=== PATIENT | male | born 1980 | race Caucasian/White ===

== ENCOUNTER 2022-04-04 11:20 | Emergency (ER) | payer SELFPAY ==
[2022-04-04 11:21] VITALS: BP 143/102; PULSE 75; RESP 18; TEMP 36.6; O2SAT 99; BMI 25.0
--- NOTE | 2022-04-04 11:27 | NURSING ---
NO OLD EKGS
--- NOTE | 2022-04-04 12:29 | RAD_ITS ---
STUDY: X-RAY - RIGHT HAND REASON FOR EXAM: Male, 41 years old. Injury/Pain TECHNIQUE: 3 view(s) of the hand. COMPARISON: None. FINDINGS: Normal radiocarpal articulation. Normal distal radioulnar joint. Normal visualized carpal bones. Normal carpal articulations Normal carpometacarpal articulation of the thumb. Normal second through fifth carpometacarpal joints. Normal metacarpi. Normal metacarpophalangeal joint of the thumb. Normal interphalangeal joint of the thumb. Normal proximal and distal phalanges of the thumb. Normal metacarpophalangeal joints of the second through fifth fingers. Normal proximal and distal interphalangeal joints of the second through fifth fingers. Normal phalanges of the second through fifth fingers. The soft tissue structures are unremarkable. RAD/Hand Min 3 Views IMPRESSION: Normal x-ray examination of the hand. Electronically Signed: Naeem Weston MD at 13:50 EST ,
[2022-04-04 12:57] LABS: Absolute Lymphocyte Count 1.96 X10^3/uL (0.83-4.51); Basophil# 0.11 X10^3/uL; Basophil% 1.1 % (0-1); Eosinophils% 6.7 % (0-5); Hematocrit 49.7 % (40-54); Hemoglobin 16.4 g/dL (13.0-16.5); Lymphocyte # 1.96 X10^3/ul (0.83-4.51); Lymphocyte % 18.9 % (19-41); Mean Corpuscular Hgb 28.1 pg (27.0-32.0); Mean Corpuscular Volume 85.1 fL (80-94); Mean Platelet Vol. 12.2 fl (6.2-12.0); Monocyte# 0.63 X10^3/uL; Monocyte% 6.1 % (0-10); NRBC Flagged by Analyzer 0 % (0-5); Neutrophil # 6.95 X10^3/uL (2.7-7.7); Neutrophil % 66.9 % (47-70); Platelet Count 234 K/mm3 (150-450); RBC Distribution Width CV 17.5 % (11.6-14.6); Red Blood Count 5.84 M/mm3 (4.6-6.2); White Blood Count 10.4 K/mm3 (4.4-11.0)
[2022-04-04 13:13] LABS: Anion Gap 3 (5-15); BUN 9 mg/dL (7-18); BUN/Creat Ratio 9.7 RATIO (10-20); Chloride 110 mmol/L (98-107); Creatinine, Serum 0.93 mg/dL (0.70-1.30); EST Glomerular Filtration Rate 94 mL/min (>60); Est Glom Filt Rate - Afr Amer 114 mL/min (>60); Estimated Creatinine Clearance 115.75 ml/min; Glucose 124 mg/dL (74-106); Magnesium 2.2 mg/dL (1.6-2.6); Potassium 4.2 mmol/L (3.5-5.1); Sodium Level 139 mmol/L (136-145)
[2022-04-04] MEDS: Ketorolac 15 MG/ML Vial IV (13:14)
[2022-04-04 13:29] VITALS: RESP 16
--- NOTE | 2022-04-04 13:30 | RAD_ITS ---
STUDY: X-RAY - CERVICAL SPINE REASON FOR EXAM: Male, 41 years old. Injury/Pain TECHNIQUE: 3 view(s) of the cervical spine were obtained. COMPARISON: None FINDINGS: Normal anterior atlantoaxial articulation. Normal odontoid process. There is straightening of the normal cervical lordosis. Anterior spondylosis and moderate degree of disc space narrowing at the C5-C6 and C6-C7 levels. Normal visualized intervertebral neuroforamina. The soft tissue structures are unremarkable. RAD/Cerv Spine 2 or 3 Views IMPRESSION: Loss of the normal cervical lordosis. Moderate degree of disc space narrowing and spondylosis at the C5-C6 and C6-C7 levels. Electronically Signed: Naeem Weston MD at 13:51 EST ,
--- NOTE | 2022-04-04 14:38 | EX.ED.DYSGE1 ---
HPI History of Present Illness Chief Complaint: Numb/Ting Informant: patient Narrative Narrative: 41-year-old male denies any significant past medical history presenting with paresthesias and weakness of his hands, right worse than left. He is right-hand dominant. States he has chronic right shoulder pain that has been worsening over the past few months. He states last night he just felt like his fingers were sausages and could not move them too well. States he also has pain in his shoulder, elbow and hand separately. 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 Patient states his thumb and index finger off the worst of his other fingers but all of his fingers feel numb. His mother does have a history of lupus and MS. Patient has been told he has herniated disc in his neck before. He states he has not dropped anything but has not really tried to pick anything up. He did not take any of her symptoms prior to arrival. He does not follow with anyone for this. No other complaints at this time. Denies any injury or trauma. Patient denies any history of cancer, IV drug use or any bleeding disorders. Is not any blood thinners. Denies any new night sweats PFSH PFSH Home Medications prednisone 20 mg tablet 40 mg PO DAILY #8 tabs 04/04/22 [Rx Last Taken Unknown] Allergy/AdvReac Type Severity Reaction Status Date / Time No Known Allergies Allergy Verified 04/04/22 11:22 Social History Smoking Status: Never smoker ROS ROS ED Constitutional Constitutional ED: Denies chills or fever(s) Eyes Eyes: Denies change in vision Cardiovascular Cardiovascular: Denies chest pain or palpitations Respiratory/Chest Respiratory/Chest: Denies cough Gastrointestinal Gastrointestinal: Denies abdominal pain or vomiting Musculoskeletal Musculoskeletal: Reports arthralgias and neck pain Integumentary Denies rash Neurologic Neurologic: Reports paresthesias; Denies headache(s) EXAM Physical Exam Const Vital Signs: 04/04/22 11:21 04/04/22 13:29 Temperature 97.8 F Temperature Source Temporal Pulse Rate 75 Respiratory Rate 18 16 Blood Pressure 143/102 H Blood Pressure Mean 115 Pulse Ox 99 Oxygen Delivery Method Room Air Positive well nourished and well developed General Appearance ED: well developed and NAD HEENT Reports moist mucous membranes Eyes PERRL Neck supple and no JVD Neck Narrative: No midline tenderness. Mild bilateral paraspinal tenderness to palpation Chest Wall inspection of chest normal Resp normal respiratory effort and clear to auscultation bilaterally Cardio regular rate, regular rhythm and no murmurs GI non-distended Extremity Extremity Narrative: Mild edema diffusely of the right hand. Patient has tenderness over the medial aspect of the right elbow with direct palpation but does not cause pain to radiate down the hand. Patient has preserved range of motion of the hand including thumbs up, crossing the fingers, AB duction, adduction and making a fist however it is slower and causes discomfort. He reports subjective paresthesias of the hand with the thumb and the index finger are worse than the other 3 fingers. Normal exam of the left hand. Pain is worsened by Sara's test. Neuro oriented x3 and CN's II-XII intact bilaterally Neuro Narrative: Subjective paresthesias of the right hand diffusely but most pronounced in the distribution of the radial nerve of the right hand Sensorium / Orientation: alert Motor Exam: strength 5/5 throughout; Negative for general weakness Psych mental status grossly normal Skin no rashes or lesions noted and no wounds MDM MDM MDM Narrative Medical decision making narrative: Patient evaluated for bilateral hand paresthesias and pain. He has what seems to be more of a peripheral nerve entrapment and possible radiculopathy. I suspect he has de Quervain's tenosynovitis given the significant pain and paresthesias with movement of the radial aspect of the hand. CBC, BMP and magnesium ordered to check his electrolytes. No significant abnormalities. X-ray of the hand does not show any acute process. X-ray of the cervical spine did show moderate degree of disc base narrowing and spondylosis of C5-C6 and C6-C7. I do not think he requires emergent MRI. He does not have any risk factors for discitis or epidural abscess/hematoma. Patient has improvement of symptoms with IV Toradol in the ER. I do not think this is a central process I do not think he requires any head imaging. Patient is given referral for Ortho for outpatient follow-up as well as a primary care doctor. Is started on a short course of prednisone. Is given a thumb spica splint. Is counseled return precautions. Discharged home in stable condition. States he will talk to his work about light duty or decreasing the repetitive motion that likely is worsening his hand symptoms. Lab Data Attestation: I reviewed the patient's lab results. Labs: Laboratory Results - last 24 hr 04/04/22 04/04/22 12:45 12:45 WBC 10.4 RBC 5.84 Hgb 16.4 Hct 49.7 MCV 85.1 MCH 28.1 MCHC 33.0 RDW Std Deviation 50.0 H RDW Coeff of Johnson 17.5 H Plt Count 234 MPV 12.2 H Immature Gran % (Auto) 0.300 Neut % (Auto) 66.9 Lymph % (Auto) 18.9 L [place] % (Auto) 6.1 Eos % (Auto) 6.7 H Baso % (Auto) 1.1 H Absolute Neuts (auto) 7.0 Absolute Lymphs (auto) 1.96 Nucleated RBC % 0 Sodium 139 Potassium 4.2 Chloride 110 H Carbon Dioxide 26.0 Anion Gap 3 L BUN 9 Creatinine 0.93 Estim Creat Clear Calc 115.75 Est GFR (MDRD) Af Amer 114 Est GFR (MDRD) Non-Af 94 BUN/Creatinine Ratio 9.7 L Glucose 124 H Calcium 10.0 Magnesium 2.2 Radiography Diagnostic Testing: Clinical Impression(s) from Imaging Studies Hand X-Ray 04/04/22 12:29 IMPRESSION: Normal x-ray examination of the hand. Electronically Signed: Naeem Weston MD at 13:50 EST , Cervical Spine X-Ray 04/04/22 13:30 IMPRESSION: Loss of the normal cervical lordosis. Moderate degree of disc space narrowing and spondylosis at the C5-C6 and C6-C7 levels. Electronically Signed: Naeem Weston MD at 13:51 EST , Discharge Plan Triage Chief Complaint: Numb/Ting ED Provider: Carmen Kincaid Dx/Rx/DC Orders Clinical Impression: Arm paresthesia, right, Paresthesias in left hand, Paresthesias in right hand, De Quervain's tenosynovitis, right Instructions: De Quervain Tenosynovitis, ED Neuropathy, Peripheral, ED Paraesthesias Prescriptions: New prednisone 20 mg tablet 40 mg PO DAILY Qty: 8 0RF Primary Care Provider: Care Physician,No Primary Referrals: Callum Garza MD [Med Staff - Climbing Guide] - As soon as possible Jackson Gooden DO [Med Staff - Active Staff] - As soon as possible Care Physician,No Primary [Primary Care Provider] - Activity Restrictions/Additional Instructions: Alternate ibuprofen and Tylenol. Wear the splint especially while at work. Follow-up with orthopedics as well as primary care. You been given a referral for both. Disposition Disposition: Home, Self Care Discharge Date/Time: 04/04/22 14:56
[2022-04-04] MEDS: predniSONE 20 MG Tablet 60 MG PO (14:53)
== END 2022-04-04 14:56 | disposition home or self-care (01) ==
PROVIDERS: Emergency Provider Emergency Medicine; Visit Provider Emergency Medicine
DX: R20.2 Paresthesia of skin (principal); M65.4 Radial styloid tenosynovitis [de Quervain]; M47.812 Spondylosis without myelopathy or radiculopathy, cervical region; G89.29 Other chronic pain
CPT/HCPCS: 72040; 73130; 80048; 83735; 85025; 96374; 99285; A4216

== ENCOUNTER 2022-09-18 13:42 | Emergency (ER) | payer SELFPAY ==
[2022-09-18 13:43] VITALS: BP 177/97; PULSE 66; RESP 22; TEMP 36.6; O2SAT 100; BMI 22.1
--- NOTE | 2022-09-18 14:12 | EDS_ITS ---
HPI History of Present Illness Chief Complaint: Nausea/Vomiting PFSH PFS Home Medications prednisone 20 mg tablet 40 mg (2 x 20 mg) PO DAILY #8 tabs 04/04/22 [Rx Last Taken Unknown] ondansetron 4 mg disintegrating tablet 4 mg PO Q8H PRN nausea and vomiting 3 days #9 tabs 09/18/22 [Rx Last Taken Unknown] Allergy/AdvReac Type Severity Reaction Status Date / Time No Known Allergies Allergy Verified 09/18/22 13:42 Social History Smoking Status: Current every day smoker tobacco type: cigarettes EXAM Physical Exam Const Vital Signs: 09/18/22 13:43 Temperature 97.8 F Temperature Source Temporal Pulse Rate 66 Respiratory Rate 22 H Blood Pressure 177/97 H Blood Pressure Mean 123 Pulse Ox 100 Oxygen Delivery Method Room Air [facility] MDM Narrative Medical decision making narrative: HISTORY OF PRESENT ILLNESS: 41-year-old male here with acute onset of nausea and vomiting. Denies any recent travel, new foods. Denies any fever. Denies any chest pain or abdominal pain. States that started proxy 1 hour prior to arrival with intractable nausea and vomiting. Also states he feels anxious. Denies any suicidal homicidal ideation denies any auditory visual hallucinations. REVIEW OF SYSTEMS: Pertinent positives: Nausea vomiting, anxiety Pertinent negatives: Chest pain, abdominal pain, syncope PHYSICAL EXAM: Nursing triage notes reviewed, Vital signs reviewed Constitutional: please see mdm HENT: MMM Eyes: Pupils equal round and reactive to light, Extraocular muscles intact Neck: No stridor, no JVD, full neck ROM Lungs: Clear to auscultation, No wheezing or rales. No increased work of breathing, no conversational dyspnea, no accessory muscle use, no nasal flaring. No respiratory distress noted Heart: Regular rate and rhythm, No murmurs, No rubs and No gallops, 2+ distal pulses (radial, femoral, posterior tibial) in all extremities Abdomen: Soft, there is no tenderness, rigidity, rebound or guarding, no obvious peritoneal signs, no palpable pulsatile abdominal masses, no auscultated abdominal bruit : No CVAT Extremities: No edema Neuro: No focal neurological deficits, cranial nerves II through XII intact, 5/5 strength in all extremities. Intact sensation to light touch in all extremities, 2+ reflexes bilateral patella tendons. Normal gait. No ataxia. Skin: No rash or lesions noted MEDICAL DECISION MAKING: Chief Complaint: Nausea vomiting External records reviewed: No recent Hernandez imaging the abdomen pelvis noted Factors affecting care: none ALL IMAGES (IF OBTAINED) HAVE BEEN PERSONALLY REVIEWED AND INTERPRETED BY MYSELF. MDM Narrative: Patient was hemodynamically stable, afebrile, nontoxic-appearing. Abdominal exam was benign. Low suspicion for acute surgical pathology abdomen and pelvis. I obtained labs rule out dehydration, electrolyte abnormalities, systemic infl ammation. I treated the patient with fluids, Zofran and Ativan Labs are unremarkable. Repeat abdominal exam is benign. The patient appeared comfortable actually initially sleeping on my reassessment. He is easily arousable. Attempted p.o. challenge the patient refused to attempt p.o. challenge. We will discharge with Zofran. With instructed return if he develops new nausea and vomiting. I see nothing that would suggest an acute abdomen at this time. Based on history physical exam, risk factors, I have a low for bowel obstruction, incarcerated hernia, acute pancreatitis, intra-abdominal abscess, perforated viscus, diverticulitis, cholecystitis, appendicitis, is very low. There is no evidence of peritonitis sepsis or toxicity at this time. I feel the patient can be managed as an outpatient with follow-up with her primary physician in the next 24 to 48 hours or soon as possible. Instructions have been given for the patient to return to the ED for worsening pain, anorexia, high fevers, intractable vomiting or bleeding. The patient and/or family, caregivers express understanding. The patient and/or family, caregivers agrees with the plan. Shared decision making: I will have a discussion with the patient and or visitors regarding risk/benefits of further testing or admission. They will be made aware of of the risk/benefits inherent in this decision they will be given the opportunity to voice understanding. Total critical care time today provided was at least 0 minutes. This excludes separately billable procedures. Critical care time (if documented) is secondary to the patient having high probability of clinically significant/life threatening deterioration in the patient's condition which required my urgent intervention. Lab Data Attestation: I reviewed the patient's lab results. Lab results narrative: CBC without leukocytosis, severe anemia, no thrombocytopenia. BMP without evidence of significant electrolyte abnormalities, no anion gap, no acute kidney injury. LFTs show no evidence of hepatobiliary pathology. Lipase is wnl indicating no pancreatic inflammation. Labs: Laboratory Results - last 24 hr 09/18/22 14:27 WBC 10.8 RBC 5.46 Hgb 16.1 Hct 48.3 MCV 88.5 MCH 29.5 MCHC 33.3 RDW Std Deviation 50.5 H RDW Coeff of Johnson 15.5 H Plt Count 236 MPV 11.4 Immature Gran % (Auto) 0.400 Neut % (Auto) 67.7 Lymph % (Auto) 20.3 [place] % (Auto) 8.1 Eos % (Auto) 2.7 Baso % (Auto) 0.8 Absolute Neuts (auto) 7.3 Absolute Lymphs (auto) 2.20 Nucleated RBC % 0 Sodium 137 Potassium 3.7 Chloride 106 Carbon Dioxide 22.0 Anion Gap 9 BUN 9 Creatinine 0.96 Estim Creat Clear Calc 104.01 Est GFR (MDRD) Af Amer 110 Est GFR (MDRD) Non-Af 91 BUN/Creatinine Ratio 9.4 L Glucose 92 Calcium 9.5 Total Bilirubin 0.90 AST 14 L ALT 29 Alkaline Phosphatase 87 Total Protein 7.7 Albumin 4.0 Globulin 3.7 Albumin/Globulin Ratio 1.1 Lipase 71 Discharge Plan Triage Chief Complaint: Nausea/Vomiting Other Complaint: Anxiety ED Provider: Patricio Miller Dx/Rx/DC Orders Clinical Impression: Anxiety, Nausea & vomiting Instructions: ED Vomiting (Adult) Prescriptions: New ondansetron 4 mg tablet,disintegrating 4 mg PO Q8H PRN (Reason: nausea and vomiting) 3 Days Qty: 9 0RF No Action prednisone 20 mg tablet 40 mg PO DAILY Qty: 8 0RF Stand Alone Forms: ED Work / School Excuse Primary Care Provider: Care Physician,No Primary Referrals: Care Physician,No Primary [Primary Care Provider] - Activity Restrictions/Additional Instructions: Thank you for trusting us with your care today! Please take Tylenol (2 pills, 650 mg), ibuprofen (2 pills, 400 mg) every 6 hours as needed for pain and fever control. Please take Zofran as needed for nausea and vomiting. Please return to the emergency department if your symptoms change or worsen. Specifically if cannot tolerate food or medicine by mouth. Please follow with your primary care physician for further outpatient evaluation and management. Disposition Disposition: Home, Self Care
[2022-09-18] MEDS: LORazepam 2 MG/ML Syringe 1 MG IV (14:32)
[2022-09-18] MEDS: 0.9% Normal Saline 1,000 ML 999 ML IV (14:32)
[2022-09-18] MEDS: Famotidine 200 MG/20 ML MDV 20 MG in 0.9% Normal Saline (Pres. free 8 ML 300 MG IV (14:32)
[2022-09-18] MEDS: Ondansetron 4 MG/2 ML Vial IV (14:32)
[2022-09-18 14:35] LABS: Absolute Neutrophil Count 7.3 X10^3/uL (2.0-7.7); Basophil# 0.09 X10^3/uL; Basophil% 0.8 % (0-1); Eosinophil# 0.29 X10^3/uL; Eosinophils% 2.7 % (0-5); Hematocrit 48.3 % (40-54); Hemoglobin 16.1 g/dL (13.0-16.5); Lymphocyte % 20.3 % (19-41); Mean Corp Hgb Conc 33.3 g/dL (32-36); Mean Corpuscular Hgb 29.5 pg (27.0-32.0); Mean Corpuscular Volume 88.5 fL (80-94); Mean Platelet Vol. 11.4 fl (6.2-12.0); Monocyte# 0.88 X10^3/uL; Monocyte% 8.1 % (0-10); NRBC Flagged by Analyzer 0 % (0-5); Neutrophil # 7.33 X10^3/uL (2.7-7.7); Neutrophil % 67.7 % (47-70); Platelet Count 236 K/mm3 (150-450); RBC Distribution Width CV 15.5 % (11.6-14.6); RBC Distribution Width SD 50.5 fl (35.1-43.9); Red Blood Count 5.46 M/mm3 (4.6-6.2); White Blood Count 10.8 K/mm3 (4.4-11.0)
[2022-09-18 14:50] LABS: ALB/GLOB Ratio 1.1 RATIO (0.9-2.4); AST(SGOT) 14 U/L (15-37); Alanine Aminotransfer ALT/SGPT 29 U/L (16-61); Alkaline Phosphatase 87 U/L (45-117); Anion Gap 9 (5-15); BUN 9 mg/dL (7-18); BUN/Creat Ratio 9.4 RATIO (10-20); Calcium,Total 9.5 mg/dL (8.5-10.1); Chloride 106 mmol/L (98-107); Creatinine, Serum 0.96 mg/dL (0.70-1.30); EST Glomerular Filtration Rate 91 mL/min (>60); Est Glom Filt Rate - Afr Amer 110 mL/min (>60); Estimated Creatinine Clearance 104.01 ml/min; Globulin 3.7 g/dL (2.2-4.2); Glucose 92 mg/dL (74-106); Lipase 71 U/L (13-75); Potassium 3.7 mmol/L (3.5-5.1); Protein, Total 7.7 g/dL (6.4-8.2); Sodium Level 137 mmol/L (136-145)
[2022-09-18] MEDS: Metoclopramide 10 MG/2 ML Vial 5 MG IV (15:44)
--- NOTE | 2022-09-18 15:45 | ED.RN ---
PT REFUSING PO CHALLENGE AT THIS TIME, DR BAUER MADE AWARE. REGLAN ORDERED
[2022-09-18 16:32] VITALS: BP 159/61; PULSE 77; RESP 14; O2SAT 98
== END 2022-09-18 16:32 | disposition home or self-care (01) ==
PROVIDERS: Emergency Provider Emergency Medicine; Visit Provider Emergency Medicine
DX: F41.9 Anxiety disorder, unspecified (principal); R11.2 Nausea with vomiting, unspecified; F17.210 Nicotine dependence, cigarettes, uncomplicated
CPT/HCPCS: 80053; 83690; 85025; 96374; 96375; 99283; J7030; A4216; J2405; J3490

== ENCOUNTER 2023-03-29 12:49 | Emergency (ER) | payer SELFPAY ==
[2023-03-29 12:51] VITALS: BP 134/76; PULSE 88; RESP 16; TEMP 36.2; O2SAT 98; BMI 25.8
--- NOTE | 2023-03-29 14:08 | EX.ED.GENINJ ---
HPI <MALCOLM Quinones - Last Filed: 03/29/23 14:13> History of Present Illness Chief Complaint: Laceration Narrative Narrative: Patient is a 42-year-old male with no significant medical history presents to the emergency department after sustaining a laceration to the left thumb. Patient's tetanus vaccination was 3 years ago. States he was not paying attention, cutting something when the pocket knife slipped cutting him on the medial thumb. Patient denies any difficulty moving, [place] any numbness or tingling. Patient states he was concerned because it would not stop bleeding. PFSH <MALCOLM Quinones - Last Filed: 03/29/23 14:13> [facility] Medical History no medical history Home Medications prednisone 20 mg tablet 40 mg (2 x 20 mg) PO DAILY #8 tabs 04/04/22 [Rx Last Taken Unknown] ondansetron 4 mg disintegrating tablet 4 mg PO Q8H PRN nausea and vomiting 3 days #9 tabs 09/18/22 [Rx Last Taken Unknown] Allergy/AdvReac Type Severity Reaction Status Date / Time No Known Allergies Allergy Verified 03/29/23 12:50 Social History Smoking Status: Current every day smoker tobacco type: cigarettes ROS <MALCOLM Quinones - Last Filed: 03/29/23 14:13> ROS ED ROS Narrative Constitutional: Negative for fever, chills, weight loss, weakness Eyes: Negative for vision loss, vision change, double vision ENT: Negative for any sore throat, ear pain, congestion Cardiovascular: Negative for any chest pain, tightness, palpitations Respiratory: Negative for any cough, sputum production, hemoptysis, dyspnea, dyspnea on exertion, orthopnea Gastrointestinal: Negative for any abdominal pain, nausea, vomiting, diarrhea, constipation, blood in stool, blood in vomit : Negative for any urinary frequency, dysuria, retention, blood in urine Muscle skeletal: Negative for any myalgias, arthralgias, neck pain, back pain Neurological: Negative for any headache, syncope, paresthesias, dizziness Skin: Negative for any rashes, lumps, itching, abrasions. Positive for left thumb laceration Psychiatric: Negative for any depression, anxiety, stress, suicidal ideation, homicidal ideation Hematologic: Negative for any easy bruising, excessive bruising, easy bleeding Allergies: Negative for any eczema, hives, rash EXAM <MALCOLM Quinones - Last Filed: 03/29/23 14:13> Physical Exam Narrative Exam Narrative: Vital signs reviewed. Extremities: No peripheral edema, no signs of gross trauma or deformity. Active full range of motion of all extremities. Patient has a flap-like laceration ulnar aspect of the left thumb just below the joint. This is roughly 2 cm in a flap-like fashion. No deep tissue injury, full range of motion. Neuro: Cranial nerves II through XII intact, no focal neurological deficits. Skin: Clean dry and intact with no rash, purpura, petechiae, vesicles or pustules. Backs/flank: No CVA tenderness, no midline spinal tenderness, no deformity. Psych: Normal mood and affect. No SI, HI or acute psychosis. Const Vital Signs: 03/29/23 12:51 Temperature 97.1 F L Temperature Source Temporal Pulse Rate 88 Respiratory Rate 16 Blood Pressure 134/76 H Blood Pressure Mean 95 Pulse Ox 98 Oxygen Delivery Method Room Air Positive well nourished and well developed General Appearance ED: well developed <Dr. Shayne Fuentes MD - Last Filed: 03/29/23 15:31> Physical Exam Const Vital Signs: 03/29/23 12:51 Temperature 97.1 F L Temperature Source Temporal Pulse Rate 88 Respiratory Rate 16 Blood Pressure 134/76 H Blood Pressure Mean 95 Pulse Ox 98 Oxygen Delivery Method Room Air MDM <MALCOLM Quinones - Last Filed: 03/29/23 14:13> [facility] Treatment and Re-Evaluation Narrative: Patient appears generally well, patient appears nontoxic, vital signs are stable. Presenting to the emergency department after sustaining a injury to the left thumb. Patient is a 2 cm flap-like laceration. There is no tendon involvement. No evidence to suspect any foreign body, x-rays not indicated. I was able to anesthetize the area, I was able to irrigate copiously with 200 cc of normal saline. Sterile gloves, sterile drapes were used. I was able to place 5 simple intermittent sutures of 4-0 Ethilon. Patient tolerated well. Patient had these removed in 10 days. All questions were answered, patient stable for discharge. <Dr. Shayne Fuentes MD - Last Filed: 03/29/23 15:31> [facility] MDM Narrative Medical decision making narrative: I have personally performed a face to face assessment of the patient and have reviewed the JOHN Note. I performed a substantive portion of the visit including all aspects of the following. My gu findings include: History is [42-year-old [id number] male was using a knife at home and slipped and cut his left thumb with a flap laceration. Tetanus is up-to-date. No other injuries.] Exam is [42-year-old male no acute distress vital signs stable afebrile. Left thumb flap laceration on the ulnar side of his left thumb. Neurovascular intact. Full range of motion. On the repaired. No signs of infection or foreign body. No bony deformity.] Medical Decision Making [suture repaired by our [employer]. Clinically looks well. Good approximation and closure. Patient instructed on wound care and suture removal in 10 days. Return if any signs of infection.] Other additions or changes: [None] Discharge Plan Triage Chief Complaint: Laceration ED Midlevel Provider: Alex Gerber ED Provider: Shayne Fuentes Dx/Rx/DC Orders Clinical Impression: Finger laceration Instructions: ED Laceration Extremity Prescriptions: No Action prednisone 20 mg tablet 40 mg PO DAILY Qty: 8 0RF ondansetron 4 mg tablet,disintegrating 4 mg PO Q8H PRN (Reason: nausea and vomiting) 3 Days Qty: 9 0RF Primary Care Provider: Care Physician,No Primary Referrals: Care Physician,No Primary [Primary Care Provider] - Activity Restrictions/Additional Instructions: Please have the sutures removed in 10 days. Keep the area clean and dry. Remember the next couple days to try to decrease any movement. Disposition Disposition: Home, Self Care Discharge Date/Time: 03/29/23 14:20
[2023-03-29] MEDS: Lidocaine 1% (20 ml mdv) 20 ML Vial INFILT (14:15)
== END 2023-03-29 14:20 | disposition home or self-care (01) ==
PROVIDERS: Emergency Provider Emergency Medicine; Visit Provider Emergency Medicine
DX: S61.012A Laceration without foreign body of left thumb without damage to nail, initial encounter (principal); F17.210 Nicotine dependence, cigarettes, uncomplicated; W26.0XXA Contact with knife, initial encounter
CPT/HCPCS: 99282

== ENCOUNTER 2023-05-24 13:19 | Emergency (ER) | payer SELFPAY ==
[2023-05-24 13:19] VITALS: BP 143/106; PULSE 96; RESP 16; TEMP 36.6; O2SAT 99; BMI 23.9
--- NOTE | 2023-05-24 13:57 | EX.ED.VIS.EY ---
HPI History of Present Illness Chief Complaint: Eye Problem Informant: patient Onset/Context/Timing Location: Right Eye (mildly on left, but FB sens and sv pain R) Onset: Days (3) Narrative Narrative: Patient has had gradual onset of discomfort in his right eye, also a little on the left but nothing compared to the right. He has foreign body sensation and tearing. When he is not having tearing/watery discharge, his vision is normal. He has reading glasses but does not use glasses otherwise and does not wear contacts. 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 PFSH PFS Medical History no medical history no medical history Home Medications prednisone 20 mg tablet 40 mg (2 x 20 mg) PO DAILY #8 tabs 04/04/22 [Rx Last Taken Unknown] ondansetron 4 mg disintegrating tablet 4 mg PO Q8H PRN nausea and vomiting 3 days #9 tabs 09/18/22 [Rx Last Taken Unknown] Allergy/AdvReac Type Severity Reaction Status Date / Time No Known Allergies Allergy Verified 05/24/23 13:20 Social History Smoking Status: Current every day smoker tobacco type: cigarettes ROS ROS ED Constitutional Constitutional ED: Denies chills or fever(s) Eyes Eyes: Reports as per HPI and eye pain ENT ENT ED: Denies ear pain, rhinorrhea or sore throat Neurologic Neurologic: Denies headache(s), paresthesias or weakness EXAM Physical Exam Const Vital Signs: 05/24/23 13:19 Temperature 98 F Temperature Source Temporal Pulse Rate 96 Respiratory Rate 16 Blood Pressure 143/106 H Blood Pressure Mean 118 Pulse Ox 99 Oxygen Delivery Method Room Air Positive well nourished and well developed General Appearance ED: well developed and NAD HEENT atraumatic; Negative for tenderness Mouth ED: Yes oral and palatal mucosa normal and Yes lips normal Mouth: oral and palatal mucosa normal and lips normal Eyes PERRL and EOMs intact bilaterally Eyes Narrative: Left eye normal-appearing. The right eye has nasal conjunctival injection. Minimal blepharospasm/photophobia. Right eye: On slit-lamp exam, there is a punctate foreign body attached to the cornea fairly peripherally around the 3:00 area. With fluorescein staining, Frankie's negative and there were no other areas of dye uptake other than the foreign body. There is no corneal stippling. Neuro oriented x3, CN's II-XII intact bilaterally and gait normal Sensorium / Orientation: alert Skin Lesions: no lesions Rashes: no rashes MDM MDM MDM Narrative Medical decision making narrative: Patient appeared to have a foreign body on the nasal aspect of the cornea which was removed see the procedure note. No evidence of UV keratitis at this time. Patient was given erythromycin ophthalmic ointment and instructions for use and advised to follow-up with ophthalmology. Procedures Other Procedures Procedure(s): Corneal foreign body removal: After anesthetizing with tetracaine, using the eye kacey, was able to gently lift the foreign body off of the cornea. I then used a flush to gently flush the foreign body out of his eye, and saw it in the sink. Examining him afterwards, negative Frankie sign no other areas of dye uptake and no residual rust ring. Discharge Plan Triage Chief Complaint: Eye Problem ED Provider: Josh Marroquin Dx/Rx/DC Orders Clinical Impression: Foreign body in cornea, right eye, initial encounter Instructions: ED Corneal Foreign Body, Removed Prescriptions: No Action prednisone 20 mg tablet 40 mg PO DAILY Qty: 8 0RF ondansetron 4 mg tablet,disintegrating 4 mg PO Q8H PRN (Reason: nausea and vomiting) 3 Days Qty: 9 0RF Primary Care Provider: Care Physician,No Primary Referrals: Jonathan Lam MD [Med Staff - Active Staff] - 3-5 Days if not improving Activity Restrictions/Additional Instructions: Antibiotic ointment: Use thin ribbon into your lower eyelid 2-3 times per day as needed for discomfort until eye is better. Do not try to apply directly to the eye, apply to the inside of your lower eyelid and blink in the ointment. Disposition Disposition: Home, Self Care
[2023-05-24] MEDS: Fluorescein 1 MG STRIP 1 STRIP RIGHT EYE (14:15)
[2023-05-24] MEDS: Tetracaine 0.5% Ophthalmic Bottle 3 DRP RIGHT EYE (14:15)
[2023-05-24 15:00] VITALS: BP 140/70; PULSE 90; RESP 18; TEMP 36.7; O2SAT 100
[2023-05-24] MEDS: Erythromycin Base 1 OPTH.TUBE 1 APPLIC RIGHT EYE (15:34)
== END 2023-05-24 15:38 | disposition home or self-care (01) ==
PROVIDERS: Emergency Provider Emergency Medicine; Visit Provider Emergency Medicine
DX: T15.01XA Foreign body in cornea, right eye, initial encounter (principal); F17.210 Nicotine dependence, cigarettes, uncomplicated; X58.XXXA Exposure to other specified factors, initial encounter
CPT/HCPCS: 99283; A4216

== ENCOUNTER 2023-09-24 05:57 | Emergency (ER) | payer SELFPAY ==
[2023-09-24 05:59] VITALS: PULSE 115; RESP 18; TEMP 36.2; O2SAT 98; BMI 24.3
--- NOTE | 2023-09-24 06:00 | RAD_ITS ---
EXAM: XR RIGHT FOOT COMPLETE, 3 OR MORE VIEWS CLINICAL INDICATION: injury TECHNIQUE: Frontal, lateral and oblique views of the right foot. COMPARISON: No relevant prior studies available. FINDINGS: BONES/JOINTS: Unremarkable. No acute fracture. No subluxation. Normal alignment. Preservation of the joint space. No sclerotic or destructive changes observed. SOFT TISSUES: Unremarkable. No soft tissue swelling or gas. No radiopaque foreign body. RAD/Foot min 3 Views IMPRESSION: Negative right foot x-rays. Electronically Signed: Bebo Briscoe MD at 6:40 EDT ,
--- NOTE | 2023-09-24 06:01 | EDS_ITS ---
HPI History of Present Illness Chief Complaint: Other, Pain/Inj Informant: patient Narrative Narrative: Last night patient states he was exercising kicking a heavy bag, trying to get back into kickboxing, states upon kicking the bag at 1 point he felt sudden onset of pain throughout his foot has been hurting severely ever since. States he has been suffering through the night in pain. He feels like the majority of the pain is where there is redness, on top of his right midfoot, radiating into the arch. Mild pain in the ankle but mostly the foot. PFSH PFS Medical History (Updated 09/24/23 @ 06:[address] Josh Marroquin MD) HTN (hypertension) Medical History no medical history no medical history Home Medications ?Medication ?Instructions ?Recorded ?Last Taken ?Type famotidine 20 mg tablet 20 mg PO PRN 09/24/23 09/23/23 History (Zantac-360 (famotidine)) ibuprofen 600 mg tablet 600 mg PO Q8H PRN PRN pain #20 09/24/23 Unknown Rx TABLETS Allergy/AdvReac Type Severity Reaction Status Date / Time No Known Allergies Allergy Verified 09/24/23 06:03 Social History Smoking Status: Current every day smoker tobacco type: cigarettes ROS ROS ED Constitutional Constitutional ED: Denies chills or fever(s) Musculoskeletal Musculoskeletal: Reports extremity pain; Denies neck pain Integumentary Denies Abrasions, rash or wounds Neurologic Neurologic: Denies paresthesias or weakness EXAM Physical Exam Const Vital Signs: 09/24/23 05:59 09/24/23 06:05 09/24/23 06:06 Temperature 97.1 F L Temperature Source Temporal Pulse Rate 115 H Respiratory Rate 18 Respiratory Effort Normal Non-Labored Respiratory Pattern Normal Blood Pressure 195/112 H Blood Pressure Mean 139 Pulse Ox 98 Oxygen Delivery Method Room Air 09/24/23 06:23 Temperature Temperature Source Pulse Rate Respiratory Rate Respiratory Effort Respiratory Pattern Blood Pressure 157/104 H Blood Pressure Mean 121 Pulse Ox Oxygen Delivery Method Positive well nourished and well developed General Appearance ED: well developed and NAD Neck full ROM and supple Back/Spine normal ROM and normal to inspection Extremity Extremity Narrative: Mostly tender at the right dorsal midfoot, more the tibial aspect, nontender into the arch soft tissues as well. No toe tenderness. No peroneal/lateral foot tenderness but he has some minimal tenderness at the right malleolus of the ankle, nothing at the medial malleolus. Nothing more proximally in the leg including the knee/proximal fibula. Good range of motion of the ankle. Neuro oriented x3, no focal motor deficits and no sensory deficits noted Neuro Narrative: Antalgic gait able to walk Sensorium / Orientation: alert Psych mental status grossly normal and thought process normal Skin no wounds Rashes: no rashes MDM MDM MDM Narrative Medical decision making narrative: Three-view x-ray series of the right foot were obtained and on my interpretation, they are normal showing no signs of an acute fracture or bony dislocation. The ankle bone malleoli are visible on these films and appear benign as well, my suspicion is very low for an ankle injury so I do not think we need dedicated films there. I was more concerned about the midfoot and a fracture there or a Lisfranc injury. I do not see any dissociation of the Lisfranc joint or bony abnormalities to suggest an injury there. Certainly he probably sprained ligaments in his foot given the amount of pain he is not. He does have redness on the top dorsum of the foot to suggest he was striking that area repetitively. I offered postop shoe, boot, he declines and would take just a wrap, some pain medication which was given here, and he declines crutches. He just can rest for couple days. Discharge Plan Triage Chief Complaint: Other, Pain/Inj ED Provider: Josh Marroquin Dx/Rx/DC Orders Clinical Impression: Right foot sprain Instructions: ED Foot Sprain Prescriptions: New ibuprofen 600 mg tablet 600 mg PO Q8H PRN PRN (Reason: pain) Qty: 20 0RF No Action famotidine [Zantac-360 (famotidine)] 20 mg tablet 20 mg PO PRN Primary Care Provider: Care Physician,No Primary Referrals: Thor Lagunas DPM [Med Staff - Active Staff] - 1 Week if not improving Print Language: Georgian Disposition Disposition: Home, Self Care
[2023-09-24 06:05] VITALS: BP 195/112
[2023-09-24 06:23] VITALS: BP 157/104
[2023-09-24] MEDS: Ibuprofen 600 MG Tablet PO (06:42)
[2023-09-24] MEDS: traMADol 50 MG Tablet PO (06:43)
[2023-09-24 06:44] VITALS: BP 148/110; PULSE 82; RESP 16; TEMP 36.2; O2SAT 97
== END 2023-09-24 06:48 | disposition home or self-care (01) ==
LOC: ED 06:43
PROVIDERS: Emergency Provider Emergency Medicine; Visit Provider Emergency Medicine
DX: S93.601A Unspecified sprain of right foot, initial encounter (principal); F17.210 Nicotine dependence, cigarettes, uncomplicated; X58.XXXA Exposure to other specified factors, initial encounter
CPT/HCPCS: 73630; 99283

== ENCOUNTER 2024-10-23 14:54 | Emergency (ER) | payer SELFPAY ==
[2024-10-23 14:55] VITALS: BP 193/179; PULSE 135; RESP 18; TEMP 37.1; O2SAT 99; BMI 25.9
--- NOTE | 2024-10-23 15:33 | CT_ITS ---
PROCEDURE: ABDOMEN/PELVIS W IV CONT ONLY 10/23/2024 REASON FOR EXAM: EPIGASTRIC PAIN TECHNIQUE: Procedure Code: [id number] Modality: CT Procedure: ABDOMEN/PELVIS W IV CONT ONLY Coronal and Sagittal reconstruction series were provided. CONTRAST: Isovue 370 VOLUME: 95 mL One or more dose reduction techniques were used (e.g., Automated exposure control, adjustment of the mA and/or kV according to patient size, use of iterative reconstruction technique. RADIATION DOSE SUMMARY: DLP: 810.78 mGycm COMPARISON: None. FINDINGS: Lung bases: Clear. Liver: Diffuse hepatic steatosis. Ill-defined small hypodense region adjacent to the falciform ligament is most likely a small area of more pronounced focal fatty infiltration. Gallbladder: Unremarkable. No biliary ductal dilatation. Spleen: Normal size and morphology. Pancreas: Mildly prominent main duct. No peripancreatic inflammation/edema. Adrenals: Unremarkable. Kidneys: Normal symmetric enhancement. Few bilateral punctate nonobstructive renal stones. No ureteral calculi or hydroureteronephrosis on either side. No perinephric edema. Bladder: Unremarkable. Reproductive Organs: Unremarkable. Bowel: Mild circumferential thickening of the lower esophagus. No disproportionate gastric wall thickening. Mild prominence of the duodenum and proximal jejunal bowel loops, findings suggestive of mild esophagitis and gastroenteritis. No bowel obstruction. Normal appendix. Submucosal fat infiltration of the distal colon may be metabolic in nature or related to chronic inflammation. Lymph nodes: No enlarged abdominopelvic lymph nodes. Vasculature: Normal caliber abdominal aorta and IVC. Mild atherosclerotic disease. Peritoneum / Retroperitoneum: No ascites or free air. Bones: Mild degenerative changes of the spine most pronounced at the lumbosacral junction. CT/Abdomen/Pelvis W IV Cont ONLY IMPRESSION: 1. Findings of mild esophagitis and gastroenteritis. No bowel obstruction. 2. No evidence for acute cholecystitis or pancreatitis. 3. Diffuse hepatic steatosis. 4. Few bilateral punctate nonobstructive renal stones. Reading Location: [id number]
--- NOTE | 2024-10-23 15:35 | EDS_ITS ---
HPI <MARCO ANTONIO Pfeiffer - Last Filed: 10/23/24 18:46> History of Present Illness Chief Complaint: Abd Pain Narrative Narrative: 43-year-old male with past medical history of GERD, tobacco use, occasional alcohol use presents with 4 days of nausea, vomiting, and epigastric pain. The first day he states he vomited 20 times and in the latter habits started to look brown or slightly red. He has not vomited since then but has nausea and dry heaving and continues to have epigastric pain. He can take tiny sips of water but it munoz in his throat. He normally is on omeprazole but did not take it the last few days. He reports having an endoscopy around 18 years old for GERD. He has no history of abdominal surgeries. He has not had a bowel movement in a few days, no urinary symptoms. States he drinks about a handle of liquor throughout the month but did not drink prior to these symptoms starting. PFSH <MARCO ANTONIO Pfeiffer - Last Filed: 10/23/24 18:46> [facility] Medical History (Updated 10/23/24 @ 17:37 by MARCO ANTONIO Pfeiffer) HTN (hypertension) Home Medications ?Medication ?Instructions ?Recorded ?Last Taken ?Type famotidine 20 mg tablet 20 mg PO PRN 09/24/23 History (Zantac-360 (famotidine)) ibuprofen 600 mg tablet 600 mg PO Q8H PRN PRN pain # 20 09/24/23 Unknown Rx TABLETS ondansetron 4 mg disintegrating 4 mg PO Q6H PRN PRN na usea and 10/23/24 Unknown Rx tablet vomiting #12 tabs sucralfate 1 gram tablet (Carafate) See Rx Instruction s .Route 10/23/24 Unknown Rx .COMPLEX #28 tabs Allergy/AdvReac Type Severity Reaction Status Date / Time No Known Allergies Allergy Verified 10/23/24 14:55 Social History Smoking Status: Current every day smoker tobacco type: cigarettes ROS <MARCO ANTONIO Pfeiffer - Last Filed: 10/23/24 18:46> ROS ED ROS Narrative Constitutional: Negative for fever, chills. CVS: Negative for chest pain. Respiratory: Negative for shortness of breath, cough. GI: Positive for abdominal pain, nausea, vomiting, melena, hematochezia. EXAM <MARCO ANTONIO Pfeiffer - Last Filed: 10/23/24 18:46> Physical Exam Narrative Exam Narrative: CONST: Patient sitting in no acute distress. EYES: Normal inspection. ENT: Normal inspection, dry mucous membranes. NECK: Normal inspection. RESP: No respiratory distress, CTAB. CVS: Tachycardic with regular rhythm, no murmur, no gallop. ABD: Soft with epigastric tenderness, no distention, no guarding or rebound. SKIN: Color normal, no rash, warm, dry, intact. EXTREMITIES: Normal appearance, no pedal edema. NEURO: Alert and answering questions appropriately. PSYCH: Normal affect. Const Vital Signs: 10/23/24 14:55 10/23/24 16:54 10/23/24 17:48 Temperature 98.7 F 97.6 F L Temperature Source Oral Pulse Rate 135 H 89 85 Respiratory Rate 18 14 21 H Blood Pressure 193/179 H 163/112 H 168/112 H Blood Pressure Mean 183 129 130 Pulse Ox 99 99 100 Oxygen Delivery Method Room Air Room Air <Dr. Shayne Fuentes MD - Last Filed: 10/23/24 16:58> Physical Exam Const Vital Signs: 10/23/24 14:55 10/23/24 16:54 10/23/24 17:48 Temperature 98.7 F 97.6 F L Temperature Source Oral Pulse Rate 135 H 89 85 Respiratory Rate 18 14 21 H Blood Pressure 193/179 H 163/112 H 168/112 H Blood Pressure Mean 183 129 130 Pulse Ox 99 99 100 Oxygen Delivery Method Room Air Room Air MDM <MARCO ANTONIO Pfeiffer - Last Filed: 10/23/24 18:46> [facility] Narrative Medical decision making narrative: Differential includes but not limited to GERD, PUD, pancreatitis, cholecystitis 43-year-old male presents with 4 days of epigastric pain and nausea and vomiting. Initially vomited multiple times the first day and is now dry heaving with decreased p.o. intake. He appears uncomfortable but nontoxic. He is hypertensive and tachycardic in the 130s on presentation. He has dry mucous membranes. Heart is rapid but regular. Lungs clear. Abdomen soft with epigas tric tenderness. Labs show significant hemoconcentration/dehydration with WBC of 13.2, Hgb 20.6, platelets 277. Sodium is 132, chloride 90, normal renal function, gap is 19. His total bilirubin is 1.31 but AST and ALT are normal, alkaline phosphatase 140. Lipase normal at 44. CT shows esophagitis and gastroenteritis and fatty liver. No other acute process. He feels better after IV fluids, morphine, Zofran and Protonix and is tolerating p.o. intake. Heart rate is now 85. He is on omeprazole at home so I prescribed Carafate, discussed lifestyle changes, recommended smoking and alcohol cessation. Return precautions were discussed and he was discharged in stable condition. I have personally performed a face to face assessment of the patient and have reviewed the JOHN Note. I performed a substantive portion of the visit including all aspects of the following. My gu findings include: History is [ 43-year-old male history of reflux. States he has had nausea vomiting and developed abdominal pain since Saturday. No fever. No weight loss. No melena. Denies any dysuria. No prior abdominal surgeries. Does drink alcohol. Denies any history of prior GI bleed. Said there may have been a small amount of blood in some of his emesis. But not large clots no coffee ground.] Exam is [well-appearing 43-year-old male. Vital signs elevated blood pressure and pulse. H EENT exam pupils round react to light. Extra motions are intact. Neck nontender no JVD. No lymphadenopathy. Lungs clear to auscultation bilaterally. Heart tachycardic 120 no murmur. Chest wall ribs nontender. Abdomen soft nondistended normal bowel sounds without peritoneal signs. No Serna sign. No hernia. No mass. No obstruction. Both the right RI and right lower quadrants are nontender. No Serna sign. No McBurney's point tenderness. No obstruction. Left upper left lower quadrant nontender. Moving all 4 extremities. Nontender no edema. Normal strength. Back nontender. Neurologically is awake alert. Answering questions following commands.] Medical Decision Making [43-year-old male epigastric abdominal pain will have a GI workup including CAT scan. Treated with morphine and Zofran. Protonix. Differential would include reflux, gastritis, ulcer, pancreatitis versus other.] Other additions or changes: [None] Lab Data Labs: Laboratory Results - last 24 hr 10/23/24 15:45 WBC 13.2 H RBC 6.21 H Hgb 20.6 H* Hct 58.5 H MCV 94.2 H MCH 33.2 H MCHC 35.2 RDW Std Deviation 47.4 H RDW Coeff of Johnson 13.6 Plt Count 277 MPV 9.8 Immature Gran % (Auto) 0.300 Neut % (Auto) 75.1 H Lymph % (Auto) 13.2 L [place] % (Auto) 10.6 H Eos % (Auto) 0.3 Baso % (Auto) 0.5 Absolute Neuts (auto) 9.9 H Absolute Lymphs (auto) 1.74 Nucleated RBC % 0 Sodium 132 L Potassium 3.4 Chloride 90 L Carbon Dioxide 22.8 Anion Gap 19 H BUN 18 Creatinine 1.14 Estim Creat Clear Calc 92.48 Est GFR (MDRD) Non-Af 81 BUN/Creatinine Ratio 16.1 Glucose 118 H Calcium 10.6 Total Bilirubin 1.31 H AST 34 ALT 43 Alkaline Phosphatase 140 H Total Protein 8.5 H Albumin 4.6 Globulin 3.8 Albumin/Globulin Ratio 1.2 Lipase 44 Radiography Diagnostic Testing: Clinical Impression(s) from Imaging Studies Abdomen/Pelvis CT 10/23/24 15:33 IMPRESSION: 1. Findings of mild esophagitis and gastroenteritis. No bowel obstruction. 2. No evidence for acute cholecystitis or pancreatitis. 3. Diffuse hepatic steatosis. 4. Few bilateral punctate nonobstructive renal stones. Reading Location: [id number] <Dr. Shayne Fuentes MD - Last Filed: 10/23/24 16:58> [facility] Narrative Medical decision making narrative: I have personally performed a face to face assessment of the patient and have reviewed the JOHN Note. I performed a substantive portion of the visit including all aspects of the following. My gu findings include: History is [ 43-year-old male history of reflux. States he has had nausea vomiting and developed abdominal pain since Saturday. No fever. No weight loss. No melena. Denies any dysuria. No prior abdominal surgeries. Does drink alcohol. Denies any history of prior GI bleed. Said there may have been a small amount of blood in some of his emesis. But not large clots no coffee ground.] Exam is [well-appearing 43-year-old male. Vital signs elevated blood pressure and pulse. H EENT exam pupils round react to light. Extra motions are intact. Neck nontender no JVD. No lymphadenopathy. Lungs clear to auscultation bilaterally. Heart tachycardic 120 no murmur. Chest wall ribs nontender. Abdomen soft nondistended normal bowel sounds without peritoneal signs. No Serna sign. No hernia. No mass. No obstruction. Both the right RI and right lower quadrants are nontender. No Serna sign. No McBurney's point tenderness. No obstruction. Left upper left lower quadrant nontender. Moving all 4 extremities. Nontender no edema. Normal strength. Back nontender. Neurologically is awake alert. Answering questions following commands.] Medical Decision Making [43-year-old male epigastric abdominal pain will have a GI workup including CAT scan. Treated with morphine and Zofran. Protonix. Differential would include reflux, gastritis, ulcer, pancreatitis versus other.] Other additions or changes: [None] History & Record Review Discussion w/independent historian: Patient Additional record(s) reviewed:: Prior inpatient record, Prior outpatient record, Prior ED visit and Prior labs Lab Data Attestation: I reviewed the patient's lab results. Lab results narrative: CBC shows a white count 13.2. H&H of 20 and 58. Platelets 277. Electrolytes show sodium 132. Gap 19. BUN/creatinine 18 and 1.1. Glucose 118.\Liver enzymes show slightly elevated total bili of 1.31. Alk phos of 140. Lipase is normal at 44. Labs: Laboratory Results - last 24 hr 10/23/24 15:45 WBC 13.2 H RBC 6.21 H Hgb 20.6 H* Hct 58.5 H MCV 94.2 H MCH 33.2 H MCHC 35.2 RDW Std Deviation 47.4 H RDW Coeff of Johnson 13.6 Plt Count 277 MPV 9.8 Immature Gran % (Auto) 0.300 Neut % (Auto) 75.1 H Lymph % (Auto) 13.2 L [place] % (Auto) 10.6 H Eos % (Auto) 0.3 Baso % (Auto) 0.5 Absolute Neuts (auto) 9.9 H Absolute Lymphs (auto) 1.74 Nucleated RBC % 0 Sodium 132 L Potassium 3.4 Chloride 90 L Carbon Dioxide 22.8 Anion Gap 19 H BUN 18 Creatinine 1.14 Estim Creat Clear Calc 92.48 Est GFR (MDRD) Non-Af 81 BUN/Creatinine Ratio 16.1 Glucose 118 H Calcium 10.6 Total Bilirubin 1.31 H AST 34 ALT 43 Alkaline Phosphatase 140 H Total Protein 8.5 H Albumin 4.6 Globulin 3.8 Albumin/Globulin Ratio 1.2 Lipase 44 Radiography Diagnostic Testing: Clinical Impression(s) from Imaging Studies Abdomen/Pelvis CT 10/23/24 15:33 IMPRESSION: 1. Findings of mild esophagitis and gastroenteritis. No bowel obstruction. 2. No evidence for acute cholecystitis or pancreatitis. 3. Diffuse hepatic steatosis. 4. Few bilateral punctate nonobstructive renal stones. Reading Location: [id number] Discharge Plan Triage Chief Complaint: Abd Pain ED Midlevel Provider: Rebekah Frankel ED Provider: Shayne Fuentes Dx/Rx/DC Orders Clinical Impression: Nausea and vomiting, Dehydration, Chronic GERD, Esophagitis Instructions: Esophagitis, GERD Lifestyle Changes Prescriptions: New ondansetron 4 mg tablet,disintegrating 4 mg PO Q6H PRN PRN (Reason: nausea and vomiting) Qty: 12 0RF sucralfate [Carafate] 1 gram tablet See Rx Instructions .ROUTE .COMPLEX Qty: 28 0RF Rx Instructions: 1 g orally ;1 g orally before each meal and at bedtime No Action famotidine [Zantac-360 (famotidine)] 20 mg tablet 20 mg PO PRN ibuprofen 600 mg tablet 600 mg PO Q8H PRN PRN (Reason: pain) Qty: 20 0RF Primary Care Provider: Care Physician,No Primary Referrals: Alex Gil MD [Med Staff - Active Staff] - Care Physician,No Primary [Primary Care Provider] - Activity Restrictions/Additional Instructions: The CAT scan shows inflammation of your esophagus and stomach from your acid reflux or GERD. Take your omeprazole daily and I prescribed a medication called Carafate that you take before each meal and at bedtime. Avoid fried or spicy foods, avoid eating 2 hours before bed as this can worsen acid reflux. Follow- up with a primary care doctor. Print Language: Cape Verdean Disposition Disposition: Home, Self Care Discharge Date/Time: 10/23/24 17:49
[2024-10-23] MEDS: Pantoprazole Sodium 40 MG in 0.9% Normal Saline (100mL MB+) 100 ML 300 MG IV (15:54)
[2024-10-23] MEDS: 0.9% Normal Saline (1000mL) 1,000 ML 999 ML IV (15:55)
[2024-10-23 16:08] LABS: Immature Granulocytes Count 0.040 X10^3/uL (0.0-0.0); Mean Corp Hgb Conc 35.2 g/dL (32-36); Mean Corpuscular Volume 94.2 fL (80-94); Mean Platelet Vol. 9.8 fl (6.2-12.0); NRBC Flagged by Analyzer 0 % (0-5); Platelet Count 277 K/mm3 (150-450); RBC Distribution Width CV 13.6 % (11.6-14.6); RBC Distribution Width SD 47.4 fl (35.1-43.9); Red Blood Count 6.21 M/mm3 (4.6-6.2); White Blood Count 13.2 K/mm3 (4.4-11.0)
[2024-10-23 16:15] LABS: Hematocrit 58.5 % (40-54)
[2024-10-23 16:18] LABS: Hemoglobin 20.6 g/dL (13.0-16.5)
--- NOTE | 2024-10-23 16:20 | ED.RN ---
Critical Hgb received from lab of 20.6. Dr. Fuentes and primary RN Humberto notified. Lab also states patient will need an adjusted blue top from lab if anticoags are ordered, Humberto RN notified.
[2024-10-23 16:26] LABS: AST(SGOT) 34 U/L (<=37); Alanine Aminotransfer ALT/SGPT 43 U/L (<=46); Albumin, Serum 4.6 g/dL (3.5-5.0); Alkaline Phosphatase 140 U/L (40-129); Anion Gap 19 (5-15); BUN 18 mg/dL (4-19); BUN/Creat Ratio 16.1 RATIO (10-20); Calcium,Total 10.6 mg/dL (7.6-11.0); Carbon Dioxide 22.8 mmol/L (21.0-32.0); Chloride 90 mmol/L (98-108); Estimated Creatinine Clearance 92.48 ml/min (50-250); Globulin 3.8 g/dL (2.2-4.2); Glucose 118 mg/dL (70-99); Lipase 44 U/L (13-75); Potassium 3.4 mmol/L (3.3-5.1)
[2024-10-23 16:54] VITALS: BP 163/112; PULSE 89; RESP 14; O2SAT 99
[2024-10-23 17:48] VITALS: BP 168/112; PULSE 85; RESP 21; TEMP 36.4; O2SAT 100
== END 2024-10-23 17:49 | disposition home or self-care (01) ==
PROVIDERS: Physician Assistant; Emergency Provider Emergency Medicine; Visit Provider Emergency Medicine
DX: R11.2 Nausea with vomiting, unspecified (principal); E86.0 Dehydration; K21.00 Gastro-esophageal reflux disease with esophagitis, without bleeding; F17.210 Nicotine dependence, cigarettes, uncomplicated
CPT/HCPCS: 74177; 80053; 83690; 85025; 96365; 96375; 99283; Q9967; A4216; J2405

== ENCOUNTER 2024-12-18 08:37 | Emergency (ER) | payer SELFPAY ==
[2024-12-18 08:37] VITALS: BP 195/100; PULSE 113; RESP 18; TEMP 36.8; O2SAT 100; BMI 28.8
--- NOTE | 2024-12-18 09:01 | EX.ED.UPPERE ---
HPI History of Present Illness Chief Complaint: Upper Extremity Injury Informant: patient Narrative Narrative: 44-year-old male presenting to the emergency room with abnormal feeling in the right hand and pain in the right elbow. 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 He has chronic neck and shoulder pain. Over the past several years he has developed pain in the lateral right elbow and most significantly over the past several months and weeks he has developed decreased dexterity in the right hand as well as a numbness like sensation. He notes he chronically has pain in the right base of the thumb. He states he is currently without insurance and is moving to [place] shortly so he is unsure if he is going to be able to get anything done surgically if needed before he goes. He states that has been ongoing issue so he wanted to get evaluated and he came to emergency. He has been utilizing ibuprofen as well as cannabis. He denies any significant change in the neck or shoulder pain. He notes that at times he has dropped cigarettes due to the dexterity issues. He notes a history of hypertension and is not currently treated for it. He states he does not really wish to take medications at this time. [facility] Medical History HTN (hypertension) Home Medications ?Medication ?Instructions ?Recorded ?Last Taken ?Type famotidine 20 mg tablet 20 mg PO PRN 09/24/23 09/23/23 History (Zantac-360 (famotidine)) ibuprofen 600 mg tablet 600 mg PO Q8H PRN PRN pain #20 09/24/23 Unknown Rx TABLETS prednisone 20 mg tablet See Rx Instructions .Route 12/18/24 Unknown Rx .COMPLEX #24 tabs Allergy/AdvReac Type Severity Reaction Status Date / Time No Known Allergies Allergy Verified 12/18/24 08:37 Social History Smoking Status: Current every day smoker tobacco type: cigarettes ROS ROS ED Constitutional Constitutional ED: Denies chills or weight loss Eyes Eyes: Denies change in vision or diplopia ENT ENT ED: Denies ear pain, rhinorrhea or sore throat Cardiovascular Cardiovascular: Denies chest pain, orthopnea, palpitations or racing heartbeat Respiratory/Chest Respiratory/Chest: Denies cough, dyspnea or orthopnea Gastrointestinal Gastrointestinal: Denies abdominal pain, diarrhea, nausea or vomiting Genitourinary Genitourinary ED: Denies dysuria, hematuria or urinary frequency Musculoskeletal Musculoskeletal: Reports neck pain and other Details: Shoulder elbow hand pain ; Denies arthralgias or myalgias Integumentary Denies abscess or rash Neurologic Neurologic: Reports paresthesias and weakness; Denies headache(s) Psychiatric Psychiatric: Denies anxiety, depression, suicidal ideation or suicidal thoughts Endocrine Endocrinology: Denies polydipsia, polyphagia or polyuria Allergic/Immunologic Allergic/Immunologic ED: Denies mouth swelling, tongue swelling or urticaria EXAM Physical Exam Const Vital Signs: 12/18/24 08:37 Temperature 98.2 F Temperature Source Oral Pulse Rate 113 H Respiratory Rate 18 Blood Pressure 195/100 H Blood Pressure Mean 131 Pulse Ox 100 Oxygen Delivery Method Room Air Positive well nourished and well developed General Appearance ED: well developed HEENT Reports normocephalic, head/scalp atraumatic and moist mucous membranes Eyes PERRL and EOMs intact bilaterally Neck no lymphadenopathy, supple and no JVD Resp normal respiratory effort and clear to auscultation bilaterally Cardio regular rate, regular rhythm and no murmurs GI normal to inspection, nondistended, normoactive bowel sounds and non-tender Palpation: soft Back/Spine no CVA tenderness and normal ROM Extremity Extremity Narrative: Patient reports generalized decrease since sedation to the right hand but particularly over the ring and little finger. I do not appreciate any muscle wasting. He has tenderness over the right lateral elbow. There is some weakness of the ring and little finger in extension compared to the left. Sensation at the upper arm is normal. He is able to shrug his shoulders normally. Full range of motion of the neck. There are no rashes. 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 He has some degree of degenerative cervical spine which is known which may be contributing but given his pain at the tunnel and his symptomology I am recommending that he see hand surgery for further evaluation. We talked about treatment options at this time and using shared decision making were in place him on tapering dose of prednisone. I can refer him to [facility] hand surgery. Patient is agreeable to this plan. Patient also understands that he needs primary care and long-term discussion of his hypertension. 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 Prescriptions: New prednisone 20 mg tablet See Rx Instructions .ROUTE .COMPLEX Qty: 24 0RF Rx Instructions: 3 tabs p.o. daily x 4 days then 2 tabs p.o. daily x 4 days then 1 tab p.o. daily x 4 days No Action famotidine [Zantac-360 (famotidine)] 20 mg tablet 20 mg PO PRN ibuprofen 600 mg tablet 600 mg PO Q8H PRN PRN (Reason: pain) Qty: 20 0RF Primary Care Provider: Care Physician,No Primary Referrals: [facility] [Outside] - As soon as possible Referral Note: Hand Surgeon evaluation Care Physician,No Primary [Primary Care Provider, Medical] Print Language: Sami Disposition Disposition: Home, Self Care
[2024-12-18 09:12] VITALS: BP 173/101; PULSE 89; RESP 14; TEMP 36.6; O2SAT 100
--- OUTSIDE RECORDS SUMMARY | 2024-12-18 09:55 | XMS RPT_ITS | CCD ---
Author Organization [facility] Care Team Providers Care Center Rep Name Role Phone Care Physician, No Primary Primary Care Provider Unavailable Alfredo GAGNON, Dr. Bella Emergency Provider Shayne Fuentes Attending Unavailable Care Physician, No Primary Primary Care Unava ilable Medications Current Medications Medication Drug Class(es) Dates Sig (Normalized) Sig (Original) famotidine 20 mg oral tablet (1 source) Histamine-2 Receptor Antagonist Start: 09-24-2023 Famotidine (Zantac-360 (Famotidine)) 20 mg tablet Active 20 mg PO NEEDED September 24, 2023 12:00am ibuprofen 600 mg oral tablet (1 source) Nonsteroidal Anti-inflammatory Drug Start: 09-24-2023 take 1 tablet by mouth every eight hours as needed for pain Ibuprofen 600 mg tablet Active 600 mg PO EVERY 8 HOURS NEEDED as needed for pain 20 0 September 24, 2023 12:00am ondansetron 4 mg disintegrating oral tablet (4 sources) Serotonin-3 Receptor Antagonist Start: 10-23-2024 take 1 tablet by mouth every six hours as needed for nausea and vomiting Ondansetron 4 mg tablet,disintegra ting Active 4 mg PO EVERY 6 HOURS NEEDED as needed for nausea and vomiting 12 0 October 23, 2024 5:30pm Start: 09-18-2022 End: 09-24-2023 take 1 tablet by mouth every eight hours as needed for nausea and vomiting Ondansetron 4 mg tablet,disintegrating Discontinued 4 mg PO Q8H as needed for nausea and vomiting 9 3 0 September 18, 2022 12:00am September 24, 2023 6:03am sucralfate 1000 mg oral tablet (1 source) Aluminum Complex Start: 10-23-2024 Sucralfate (C arafate) 1 gram tablet Active 0 .ROUTE .COMPLEX 28 0 October 23, 2024 12:00am 1 g orally ;1 g orally before each meal and at bedtime Completed/Discontinued Medications Medication Drug Class(es) Dates Sig (Normalized) Sig (Original) predniSONE 20 mg oral tablet (4 sources) Start: 04-04-2022 End: 09-24-2023 take 2 tablets by mouth once daily Prednisone 20 mg tablet Discontinued 40 mg PO DAILY April 04, 2022 1:00am September 24, 2023 6:03am Start: 04-04-2022 take 40 mg by mouth once daily Prednisone Active 40 MG PO DAILY April 04, 2022 1:00am Problems Problem Classification Problem Date Documented Date Episodic/Chronic Anxiety disorders (3 sources) Anxiety; Translations: [Anxiety disorder, unspecified] 09-26-2022 Chronic Esophageal disorders (1 source) Gastroesophageal reflux disease; Translations: [Gastro-esophageal reflux disease without esophagitis] 10-23-2024 Chronic Esophageal disorders (1 source) Esophagitis; Translations: [Esophagitis] 10-23-2024 Episodic Fluid and electrolyte disorders (1 source) Dehydration; Translations: [Dehydration] 10-23-2024 Episodic Nausea and vomiting (5 sources) Nausea and vomiting; Translations: [Nausea with vomiting, unspecified] Onset: 10-29-2024 09-26-2022 Episodic Open wounds of extremities (3 sources) Laceration of finger; Translations: [Laceration without foreign body of unspecified finger without damage to nail, initial encounter] 03-29-2023 Episodic Other connective tissue disease (4 sources) Tenosynovitis of right radial styloid; Translations: [Radial styloid tenosynovitis [de Quervain]] 04-04-2022 Episodic Other injuries and conditions due to external causes (2 sources) Foreign body in right cornea; Translations: [Foreign body in cornea, right eye, initial encounter] 05-24-2023 Episodic Other nervous system disorders (4 sources) Paresthesia of right upper limb; Translations: [Paresthesia of skin] 04-04-2022 Episodic Other nervous system disorders (8 sources) Paresthesia of hand ; Translations: [Paresthesia of skin] 04-04-2022 Episodic Sprains and strains (1 source) Sprain of right foot; Translations: [Unspecified sprain of right foot, initial encounter] 10-02-2023 Episodic Results Test Name Value Interpretation Reference Range Facility Abdomen/Pelvis W IV Cont ONL Yon 10-23-2024 Abdomen/Pelvis W IV Cont ONLY [facility] Imaging Services [address] [place], [place] [address] Abdomen/Pelvis W IV Cont ONLY MR#: [id number] Acct: [id number] Name: RASHAD SCHULTE Rep #: [id number] : 1980 M 43 From: Matteo Hilario MD PCP: Care Physician,No Primary Status: REG ER Study: Abdomen/Pelvis W IV Cont ONLY Date of Exam: Exam# [id number] Ordering Dr: Rebekah Frankel PROCEDURE: ABDOMEN/PELVIS W IV CONT ONLY 10/23/2024 REASON FOR EXAM: EPIGASTRIC PAIN TECHNIQUE: Procedure Code: [id number] Modality: CT Procedure: ABDOMEN/PELVIS W IV CONT ONLY Coronal and Sagittal reconstruction series were provided. CONTRAST: Isovue 370 VOLUME: 95 mL One or more dose reduction techniques were used (e.g., Automated exposure control, adjustment of the mA and/or kV according to patient size, use of iterative reconstruction technique. RADIATION DOSE SUMMARY: DLP: 810.78 mGycm COMPARISON: None. FINDINGS: Lung bases: Clear. Liver: Diffuse hepatic steatosis. Ill-defined small hypodense region adjacent to the falciform ligament is most likely a small area of more pronounced focal fatty infiltration. Gallbladder: Unremarkable. No biliary ductal dilatation. Spleen: Normal size and morphology. Pancreas: Mildly prominent main duct. No peripancreatic inflammation/edema. Adrenals: Unremarkable. Kidneys: Normal symmetric enhancement. Few bilateral punctate nonobstructive renal stones. No ureteral calculi or hydroureteronephrosi s on either side. No perinephric edema. Bladder: Unremarkable. Reproductive Organs: Unremarkable. Bowel: Mild circumferential thickening of the lower esophagus. No disproportionate gastric wall thickening. Mild prominence of the duodenum and proximal jejunal bowel loops, findings suggestive of mild esophagitis and gastroenteritis. No bowel obstruction. Normal appendix. Submucosal fat infiltration of the distal colon may be metabolic in nature or related to chronic inflammation. Lymph nodes: No enlarged abdominopelvic lymph nodes. Vasculature: Normal caliber abdominal aorta and IVC. Mild atherosclerotic disease. Peritoneum / Retroperitoneum: No ascites or free air. Bones: Mild degenerative changes of the spine most pronounced at the lumbosacral junction. CT/Abdomen/Pelvis W IV Cont ONLY IMPRESSION: 1. Findings of mild esophagitis and gastroenteritis. No bowel obstruction. 2. No evidence for acute cholecystitis or pancreatitis. 3. Diffuse hepatic steatosis. 4. Few bilateral punctate nonobstructive renal stones. Reading Location: [id number] CC: MARCO ANTONIO Pfeiffer; No Primary Care Physician Supervisor Beam Department: Signed Normal [facility] Absolute lymphocyte countOrd ered By: Rebekah Frankel on 10-23-2024 Lymphocytes Auto (Unsp spec) [#/Vol] 1.74 10*3/uL 0.83-4.51 [facility] Absolute neutrophil countOrd ered By: Rebekah Frankel on 10-23-2024 Neutrophils (Bld) [#/Vol] 9.9 10*3/uL High 2.0-7.7 [facility] Anion gap in Serum or Plasma Ordered By: Rebekah Frankel on 10-23-2024 Anion gap [Moles/Vol] 19 mmol/L High 5-15 [facility] Automated lymphocyte count a s percentage of total leukocytesOrdered By: Rebekah Frankel on 10-23-2024 Lymphocytes/100 WBC Auto (Unsp spec) 13.2 % Low 19-41 [facility] BUN/creatinine ratioOrdered By: Rebekah Frankel on 10-23-2024 Urea nitrogen/Creatinine [Mass ratio] 16.1 mg/mg 10-20 [facility] Basophil percentageOrdered B y: Rebekah Frankel on 10-23-2024 Basophils/100 WBC (Bld) 0.5 % 0-1 [facility] Bilirubin, totalOrdered By: Rebekah Frankel on 10-23-2024 Bilirubin [Mass/Vol] 1.31 mg/dL High 0.00-1.30 [facility] CBC W/Diff, Automatedon 09-26 Hemoglobin (Bld) [Mass/Vol] 20.6 g/dL Invalid Interpretation Code 13.0-16.5 [facility] Comment on above: Result Comment: CRIT ICAL VALUE CALLED TO RAFI REID 10/23/24 5033 Jessicaangela Galicia. RESULTS READ BACK BY SAME. Performed By: #### L 501.2450, L500.4050, L100.0100 #### [facility] [address] [place], [address] Hematocrit (Bld) [Volume fraction] 58.5 % High 40-54 [facility] Comment on above: Performed By: #### L 501.2450, L500.4050, L100.0100 #### [facility] [address] [place], [address] Absolute Lymph 1.74 X10 3/uL Normal 0.83-4.51 [facility] Comment on above: Performed By: #### L 501.2450, L500.4050, L100.0100 #### [facility] [address] [place], [address] Absolute Neut 9.9 X10 3/uL High 2.0-7.7 [facility] Comment on above: Performed By: #### L 501.2450, L500.4050, L100.0100 #### [facility] [address] [place], [address] Basophils/100 WBC (Bld) 0.5 % Normal 0-1 [facility] Comment on above: Performed By: #### L 501.2450, L500.4050, L100.0100 #### [facility] [address] [place], [address] Eosinophils/100 WBC (Bld) 0.3 % Normal 0-5 [facility] Comment on above: Performed By: #### L 501.2450, L500.4050, L100.0100 #### [facility] [address] [place], [address] Erythrocyte distribution width (RBC) [Ratio] 13.6 % Normal 11.6-14.6 [facility] Comment on above: Performed By: #### L 501.2450, L500.4050, L100.0100 #### [facility] [address] [place], [address] IG% 0.300 Normal 0.0-0.9 [facility] Comment on above: Result Comment: IG% - Immature Granulocytes (promyelocytes, myelocytes and metamyelocytes) > 1% indicates that a LEFT SHIFT is Present. Performed By: #### L 501.2450, L500.4050, L100.0100 #### [facility] [address] [place], [address] Lymphocytes/100 WBC (Bld) 13.2 % Low 19-41 [facility] Comment on above: Performed By: #### L 501.2450, L500.4050, L100.0100 #### [facility] [address] [place], [address] MCH (RBC) [Entitic mass] 33.2 pg High 27.0-32.0 [facility] Comment on above: Performed By: #### L 501.2450, L500.4050, L100.0100 #### [facility] [address] [place], [address] MCHC (RBC) [Mass/Vol] 35.2 g/dL Normal 32-36 [facility] Comment on above: Performed By: #### L 501.2450, L500.4050, L100.0100 #### [facility] [address] [place], [address] MCV (RBC) [Entitic vol] 94.2 fL High 80-94 [facility] Comment on above: Performed By: #### L 501.2450, L500.4050, L100.0100 #### [facility] [address] [place], [address] Monocytes/100 WBC (Bld) 10.6 % High 0-10 [facility] Comment on above: Performed By: #### L 501.2450, L500.4050, L100.0100 #### [facility] [address] [place], [address] Neutrophils/100 WBC (Bld) 75.1 % High 47-70 [facility] Comment on above: Performed By: #### L 501.2450, L500.4050, L100.0100 #### [facility] [address] [place], [address] Nucleated RBC (Bld) [#/Vol] 0 10*3/uL Normal 0-5 [facility] Comment on above: Performed By: #### L 501.2450, L500.4050, L100.0100 #### [facility] [address] [place], [address] Platelet mean volume (Bld) [Entitic vol] 9.8 fL Normal 6.2-12.0 [facility] Comment on above: Performed By: #### L 501.2450, L500.4050, L100.0100 #### [facility] [address] [place], [address] Platelets (Bld) [#/Vol] 277 10*3/uL Normal 150-450 [facility] Comment on above: Performed By: #### L 501.2450, L500.4050, L100.0100 #### [facility] [address] [place], [address] RBC (Bld) [#/Vol] 6.21 10*6/uL High 4.6-6.2 [facility] Comment on above: Performed By: #### L 501.2450, L500.4050, L100.0100 #### [facility] [address] [place], [address] RDW SD 47.4 fl High 35.1-43.9 [facility] Comment on above: Performed By: #### L 501.2450, L500.4050, L100.0100 #### [facility] [address] [place], [address] WBC (Bld) [#/Vol] 13.2 10*3/uL High 4.4-11.0 [facility] Comment on above: Performed By: #### L 501.2450, L500.4050, L100.0100 #### [facility] [address] [place], [address] Carbon dioxide, total [Moles /volume] in Central venous bloodOrdered By: Rebekah Frankel on 10-23-2024 CO2 [Moles/Vol] 22.8 mmol/L 21.0-32.0 [facility] Chloride assayOrdered By: Rossana Frankel on 10-23-2024 Chloride [Moles/Vol] 90 mmol/L Low 98-108 [facility] Comprehensive Metabolic Prof ilon 10-23-2024 Albumin [Mass/Vol] 4.6 g/dL Normal 3.5-5.0 [facility] Comment on above: Performed By: #### L 501.2450, L500.4050, L100.0100 #### [facility] [address] [place], [address] Albumin/Globulin [Mass ratio] 1.2 {ratio} Normal 0.9-2.4 [facility] Comment on above: Performed By: #### L 501.2450, L500.4050, L100.0100 #### [facility] [address] [place], [address] ALK PHOS 140 U/L High 40-129 [facility] Comment on above: Performed By: #### L 501.2450, L500.4050, L100.0100 #### [facility] [address] [place], [address] ALT [Catalytic activity/Vol] 43 U/L Normal <=46 [facility] Comment on above: Performed By: #### L 501.2450, L500.4050, L100.0100 #### [facility] [address] [place], [address] AST [Catalytic activity/Vol] 34 U/L Normal <=37 [facility] Comment on above: Performed By: #### L 501.2450, L500.4050, L100.0100 #### [facility] [address] [place], [address] Bilirubin [Mass/Vol] 1.31 mg/dL High 0.00-1.30 [facility] Comment on above: Performed By: #### L 501.2450, L500.4050, L100.0100 #### [facility] [address] [place], [address] BUN/CRE 16.1 RATIO Normal 10-20 [facility] Comment on above: Performed By: #### L 501.2450, L500.4050, L100.0100 #### [facility] [address] [place], [address] Calcium [Mass/Vol] 10.6 mg/dL Normal 7.6-11.0 [facility] Comment on above: Performed By: #### L 501.2450, L500.4050, L100.0100 #### [facility] [address] [place], [address] Chloride [Moles/Vol] 90 mmol/L Low 98-108 [facility] Comment on above: Performed By: #### L 501.2450, L500.4050, L100.0100 #### [facility] [address] [place], [address] CO2 [Moles/Vol] 22.8 mmol/L Normal 21.0-32.0 [facility] Comment on above: Performed By: #### L 501.2450, L500.4050, L100.0100 #### [facility] [address] [place], [address] Creatinine [Mass/Vol] 1.14 mg/dL Normal 0.70-1.20 [facility] Comment on above: Performed By: #### L 501.2450, L500.4050, L100.0100 #### [facility] [address] [place], [address] ECRCL 92.48 ml/min Normal 50-250 [facility] Comment on above: Performed By: #### L 501.2450, L500.4050, L100.0100 #### [facility] [address] [place], [address] GAP 19 High 5-15 [facility] Comment on above: Performed By: #### L 501.2450, L500.4050, L100.0100 #### [facility] [address] [place], [address] GFR/1.73 sq M.predicted among non-blacks MDRD (S/P/Bld) [Vol rate/Area] 81 mL/min/{1.73_m2} Normal >60 [facility] Comment on above: Result Comment: mL/m in/1.73m2 CKD-EPI Creatinine Equation (2020) Performed By: #### L 501.2450, L500.4050, L100.0100 #### [facility] [address] [place], [address] Globulin (S) [Mass/Vol] 3.8 g/dL Normal 2.2-4.2 [facility] Comment on above: Performed By: #### L 501.2450, L500.4050, L100.0100 #### [facility] [address] [place], [address] Glucose [Mass/Vol] 118 mg/dL High 70-99 [facility] Comment on above: Performed By: #### L 501.2450, L500.4050, L100.0100 #### [facility] [address] [place], [address] Potassium [Moles/Vol] 3.4 mmol/L Normal 3.3-5.1 [facility] Comment on above: Performed By: #### L 501.2450, L500.4050, L100.0100 #### [facility] [address] [place], [address] Sodium [Moles/Vol] 132 mmol/L Low 133-145 [facility] Comment on above: Performed By: #### L 501.2450, L500.4050, L100.0100 #### [facility] [address] [place], [address] T PROT 8.5 g/dL High 5.9-8.4 [facility] Comment on above: Performed By: #### L 501.2450, L500.4050, L100.0100 #### [facility] [address] [place], [address] Urea nitrogen [Mass/Vol] 18 mg/dL Normal 4-19 [facility] Comment on above: Performed By: #### L 501.2450, L500.4050, L100.0100 #### [facility] [address] [place], [address] Emergency Department Summary on 10-23-2024 Emergency Department Summary [facility] Medical Records Department [address] [address] Emergency Department Summary 10/23/24 MR#: [id number] Acct: [id number] Name: ERISRASHADAMIE BEAN Rep #: [id number] : 1980 43 From: Rebekah BERNARD PCP: Care Physician,No Primary Status:DEP ER Location: ED HPI History of Present Illness Chief Complaint: Abd Pain Narrative Narrative: 43-year-old male with past medical history of GERD, tobacco use, occasional alcohol use presents with 4 days of nausea, vomiting, and epigastric pain. The first day he states he vomited 20 times and in the latter habits started to look brown or slightly red. He has not vomited since then but has nausea and dry heaving and continues to have epigastric pain. He can take tiny sips of water but it munoz in his throat. He normally is on omeprazole but did not take it the last few days. He reports having an endoscopy around 18 years old for GERD. He has no history of abdominal surgeries. He has not had a bowel movement in a few days, no urinary symptoms. States he drinks about a handle of liquor throughout the month but did not drink prior to these symptoms starting. [facility] Medical History (Updated 10/23/24 @ 17:37 by MARCO ANTONIO Pfeiffer) HTN (hypertension) Home Medications ???Medication ???Instructions ???Recorded ???Last Taken ???Type famotidine 20 mg tablet 20 mg PO PRN 09/24/23 09/23/23 His tory (Zantac-360 (famotidine)) ibuprofen 600 mg tablet 600 mg PO Q8H PRN PRN pain #20 Unknown Rx TABLETS ondansetron 4 mg disintegrating 4 mg PO Q6H PRN PRN nausea and Unknown Rx tablet vomiting #12 tabs sucralfate 1 gram tablet (Carafate) See Rx Instructions .Route 09/26 11/19 Unknown Rx .COMPLEX #28 tabs Allergy/AdvReac Type Severity Reaction Status Date / Time No Known Allergies Allergy Verified 10/23/24 14:55 Social History Smoking Status: Current every day smoker tobacco type: cigarettes ROS ROS ED ROS Narrative Constitutional: Negative for fever, chills. CVS: Negative for chest pain. Respiratory: Negative for shortness of breath, cough. GI: Positive for abdominal pain, nausea, vomiting, melena, hematochezia. EXAM Physical Exam Narrative Exam Narrative: CONST: Patient sitting in no acute distress. EYES: Normal inspection. ENT: Normal inspection, dry mucous membranes. NECK: Normal inspection. RESP: No respiratory distress, CTAB. CVS: Tachycardic with regular rhythm, no murmur, no gallop. ABD: Soft with epigastric tenderness, no distention, no guarding or rebound. SKIN: Color normal, no rash, warm, dry, intact. EXTREMITIES: Normal appearance, no pedal edema. NEURO: Alert and answering questions appropriately. PSYCH: Normal affect. Const Vital Signs: 10/23/24 14:55 10/23/24 16:54 10/23/24 17:48 Temperature 98.7 F 97.6 F L Temperature Source Oral Pulse Rate 135 H 89 85 Respiratory Rate 18 14 21 H Blood Pressure 193/179 H 163/112 H 168/112 H Blood Pressure Mean 183 129 130 Pulse Ox 99 99 100 Oxygen Delivery Method Room Air Room Air Physical Exam Const Vital Signs: 10/23/24 14:55 10/23/24 16:54 10/23/24 17:48 Temperature 98.7 F 97.6 F L Temperature Source Oral Pulse Rate 135 H 89 85 Respiratory Rate 18 14 21 H Blood Pressure 193/179 H 163/112 H 168/112 H Blood Pressure Mean 183 129 130 Pulse Ox 99 99 100 Oxygen Delivery Method Room Air Room Air MDM MDM MDM Narrative Medical decision making narrative: Differential includes but not limited to GERD, PUD, pancreatitis, cholecystitis 43-year-old male presents with 4 days of epigastric pain and nausea and vomiting. Initially vomited multiple times the first day and is now dry heaving with decreased p.o. intake. He appears uncomfortable but nontoxic. He is hypertensive and tachycardic in the 130s on presentation. He has dry mucous membranes. Heart is rapid but regular. Lungs clear. Abdomen soft with epigastric tenderness. Labs show significant hemoconcentration/de hydration with WBC of 13.2, Hgb 20.6, platelets 277. Sodium is 132, chloride 90, normal renal function, gap is 19. His total bilirubin is 1.31 but AST and ALT are normal, alkaline phosphatase 140. Lipase normal at 44. CT shows esophagitis and gastroenteritis and fatty liver. No other acute process. He feels better after IV fluids, morphine, Zofran and Protonix and is tolerating p.o. intake. Heart rate is now 85. He is on omeprazole at home so I prescribed Carafate, discussed lifestyle changes, recommended smoking and alcohol cessation. Return precautions were discussed and he was discharged in stable condition. I have personally performed a face to face assessment of the patien (more content not included)... Normal [facility] Eosinophil percentageOrdered By: Rebekah Frankel on 10-23-2024 Eosinophils/100 WBC (Bld) 0.3 % 0-5 [facility] Erythrocyte distribution wid th ratioOrdered By: Rebekah Frankel on 10-23-2024 Erythrocyte distribution width (RBC) [Ratio] 13.6 % 11.6-14.6 [facility] Erythrocyte distribution wid th standard deviationOrdered By: Rebekah Frankel on 10-23-2024 Erythrocyte distribution width (RBC) [Ratio] 47.4 fl High 35.1-43.9 [facility] Glomerular filtration rate ( GFR) estimation/1.73 sq m using serum, plasma, or whole bOrdered By: Rebekah Frankel on 10-23-2024 GFR/1.73 sq M.predicted among non-blacks MDRD (S/P/Bld) [Vol rate/Area] 81 mL/min/{1.73_m2} >60 [facility] Comment on above: mL/min/1.73m2 CKD-EP I Creatinine Equation (2020) Hematocrit Auto (Bld) [Volum e fraction]Ordered By: Rebekah Frankel on 10-23-2024 Hematocrit (Bld) [Volume fraction] 58.5 % High 40-54 [facility] Hemoglobin measurementOrdere d By: Rebekah Frankel on 10-23-2024 Hemoglobin (Bld) [Mass/Vol] 20.6 g/dL High 13.0-16.5 [facility] Comment on above: CRITICAL VALUE PASCAL D TO RAFI REID10/23/24 1615 Jessica Galicia.RESULTS READ BACK BY SAME. Immature granulocytes/100 WB C Auto (Bld)Ordered By: Rebekah Frankel on 10-23-2024 Immature granulocytes/100 WBC (Bld) 0.300 % 0.0-0.9 [facility] Comment on above: IG% - Immature Granu locytes (promyelocytes, myelocytes and metamyelocytes) > 1% indicates that a LEFT SHIFT is Present. Laboratory - Chemistry and C hemistry - challengeOrdered By: Rebekah Frankel on 10-23-2024 AST [Catalytic activity/Vol] 34 U/L <38 [facility] Lipaseon 10-23-2024 Lipase [Catalytic activity/Vol] 44 U/L Normal 13-75 [facility] Comment on above: Result Comment: Max wall note: LIPASE revised reference range effective 22. New Lipase methodology. Expected to produce lower values than the previous assay method. NEW Reference Range: 13 - 75 U/L Performed By: #### L 501.2450, L500.4050, L100.0100 #### [facility] [address] [place], [address] Lipase measurementOrdered By : Rebekah Frankel on 10-23-2024 Lipase [Catalytic activity/Vol] 44 U/L 13-75 [facility] Comment on above: Please note:LIPASE r evised reference range effective 22. New Lipase methodology. Expected to produce lower values than the previous assay method. NEW Reference Range: 13 - 75 U/L MCV (mean corpuscular volume ) determinationOrdered By: Rebekah Frankel on 10-23-2024 MCV (RBC) [Entitic vol] 94.2 fL High 80-94 [facility] Mean corpuscular hemoglobin (MCH) determinationOrdered By: Rebekah Frankel on 10-23-2024 MCH (RBC) [Entitic mass] 33.2 pg High 27.0-32.0 [facility] Mean corpuscular hemoglobin concentration (MCHC) determinationOrdered By: Rebekah Frankel on 10-23-2024 MCHC (RBC) [Mass/Vol] 35.2 g/dL 32-36 [facility] Mean platelet volume determi nationOrdered By: Rebekah Frankel on 10-23-2024 Platelet mean volume (Bld) [Entitic vol] 9.8 fL 6.2-12.0 [facility] Monocyte percentageOrdered B y: Rebekah Frankel on 10-23-2024 Monocytes/100 WBC (Bld) 10.6 % High 0-10 [facility] Neutrophil percentageOrdered By: Rebekah Frankel on 10-23-2024 Neutrophils/100 WBC (Bld) 75.1 % High 47-70 [facility] Nucleated red blood cell per centageOrdered By: Rebekah Frankel on 10-23-2024 Nucleated RBC/100 WBC (Bld) [Ratio] 0 % 0-5 [facility] Platelet countOrdered By: Rossana Frankel on 10-23-2024 Platelets (Bld) [#/Vol] 277 10*3/uL 150-450 [facility] Potassium measurement (mass/ volume)Ordered By: Rebekah Frankel on 10-23-2024 Potassium (Unsp spec) [Mass/Vol] 3.4 mmol/L 3.3-5.1 [facility] RBC Auto (Bld) [#/Vol]Ordere d By: Rebekah Frankel on 10-23-2024 RBC (Bld) [#/Vol] 6.21 10*6/uL High 4.6-6.2 [facility] Serum creatinine measurement (mass/volume)Ordered By: Rebekah Frankel on 10-23-2024 Creatinine [Mass/Vol] 1.14 mg/dL 0.70-1.20 [facility] Serum globulin measurementOr dered By: Rebekah Frankel on 10-23-2024 Globulin (S) [Mass/Vol] 3.8 g/dL 2.2-4.2 [facility] Serum glucose measurement (m ass/volume)Ordered By: Rebekah Frankel on 10-23-2024 Glucose [Mass/Vol] 118 mg/dL High 70-99 [facility] Serum or plasma alanine linares otransferase (ALT) measurementOrdered By: Rebekah Frankel on 10-23-2024 ALT [Catalytic activity/Vol] 43 U/L <47 [facility] Serum or plasma albumin chcaha urement (mass/volume)Ordered By: Rebekah Frankel on 10-23-2024 Albumin [Mass/Vol] 4.6 g/dL 3.5-5.0 [facility] Serum or plasma albumin/glob ulin mass ratioOrdered By: Rebekah Frankel on 10-23-2024 Albumin/Globulin [Mass ratio] 1.2 {ratio} 0.9-2.4 [facility] Serum or plasma alkaline tha sphatase measurementOrdered By: Rebekahangela Frankel on 10-23-2024 ALP [Catalytic activity/Vol] 140 U/L High 40-129 [facility] Serum or plasma calcium chacha urement (mass/volume)Ordered By: Rebekah Frankel on 10-23-2024 Calcium [Mass/Vol] 10.6 mg/dL 7.6-11.0 [facility] Serum or plasma urea nitroge n measurement (mass/volume)Ordered By: Rebekah Frankel on 10-23-2024 Urea nitrogen [Mass/Vol] 18 mg/dL 4-19 [facility] Sodium levelOrdered By: Rebekah Frankel on 10-23-2024 Sodium [Moles/Vol] 132 mmol/L Low 133-145 [facility] Total proteinOrdered By: Sonam Frankel on 10-23-2024 Protein [Mass/Vol] 8.5 g/dL High 5.9-8.4 [facility] White blood cell (WBC) count Ordered By: Rebekah Frankel on 10-23-2024 WBC (Bld) [#/Vol] 13.2 10*3/uL High 4.4-11.0 [facility] Absolute lymphocyte countOrd ered By: Dr. Kincaid on 04-04-2022 Lymphocytes Auto (Unsp spec) [#/Vol] 1.96 10*3/uL 0.83-4.51 [facility] Basophil percentageOrdered B y: Dr. Kincaid on 04-04-2022 Basophils/100 WBC (Bld) 1.1 % 0-1 [facility] Chloride [Moles/Vol] 110 mmol/L 98-107 [facility] Eosinophils/100 WBC (Bld) 6.7 % 0-5 [facility] Glucose [Mass/Vol] 124 mg/dL 74-106 [facility] Comment on above: Fasting Glucose resu lt from 100 to 125 mg/dL suggests IMPAIRED HOMEOSTASIS per A.D.A. criteria. Neutrophils (Bld) [#/Vol] 7.0 10*3/uL 2.0-7.7 [facility] Neutrophils/100 WBC (Bld) 66.9 % 47-70 [facility] Potassium [Moles/Vol] 4.2 mmol/L 3.5-5.1 [facility] Comment on above: Slight Hemolysis, Re sult may be falsely increased. Sodium [Moles/Vol] 139 mmol/L 136-145 [facility] WBC (Bld) [#/Vol] 10.4 10*3/uL 4.4-11.0 [facility] Blood erythrocytes count (nu mber/volume)Ordered By: Dr. Kincaid on 04-04-2022 RBC (Bld) [#/Vol] 5.84 10*6/uL 4.6-6.2 [facility] Blood hemoglobin measurement (mass/volume)Ordered By: Dr. Kincaid on 04-04-2022 Hemoglobin (Bld) [Mass/Vol] 16.4 g/dL 13.0-16.5 [facility] Blood lymphocytes/100 leukoc ytesOrdered By: Dr. Kincaid on 04-04-2022 Lymphocytes/100 WBC (Bld) 18.9 % 19-41 [facility] Blood monocytes/100 leukocyt esOrdered By: Dr. Kincaid on 04-04-2022 Monocytes/100 WBC (Bld) 6.1 % 0-10 [facility] Blood platelet mean volumeOr dered By: Dr. Kincaid on 04-04-2022 Platelet mean volume (Bld) [Entitic vol] 12.2 fL 6.2-12.0 [facility] Determination of erythrocyte mean corpuscular volume (MCV)Ordered By: Dr. Kincaid on 04-04-2022 MCV (RBC) [Entitic vol] 85.1 fL 80-94 [facility] Hematocrit Auto (Bld) [Volum e fraction]Ordered By: Dr. Kincaid on 04-04-2022 Hematocrit (Bld) [Volume fraction] 49.7 % 40-54 [facility] - Chemistry and C hemistry - challengeOrdered By: Dr. Kincaid on 04-04-2022 CO2 [Moles/Vol] 26.0 mmol/L 21.0-32.0 [facility] Magnesium [Mass/Vol] 2.2 mg/dL 1.6-2.6 [facility] Comment on above: Slight Hemolysis, Re sult may be falsely increased. Urea nitrogen/Creatinine [Mass ratio] 9.7 mg/mg 10-20 [facility] - Hematology and Cell countsOrdered By: Dr. Kincaid on 04-04-2022 Erythrocyte distribution width (RBC) [Entitic vol] 50.0 fL 35.1-43.9 [facility] Erythrocyte distribution width (RBC) [Ratio] 17.5 % 11.6-14.6 [facility] Immature granulocytes/100 WBC (Bld) 0.300 % 0.0-0.9 [facility] Comment on above: IG% - Immature Granu locytes (promyelocytes, myelocytes and metamyelocytes) > 1% indicates that a LEFT SHIFT is Present. MCH (RBC) [Entitic mass] 28.1 pg 27.0-32.0 [facility] Nucleated RBC/100 WBC (Bld) [Ratio] 0 % 0-5 [facility] MCHC Auto (RBC) [Mass/Vol]Or dered By: Dr. Kincaid on 04-04-2022 MCHC (RBC) [Mass/Vol] 33.0 g/dL 32-36 [facility] No Panel InformationOrdered By: Dr. Kincaid on 04-04-2022 Estimated Creatinine Clearance Calc 115.75 ml/min [facility] Estimated GFR (MDRD) Amer 114 mL/min >60 [facility] Comment on above: GFR Calc Estimated GFR (MDRD) Non-Af Amer 94 mL/min >60 [facility] Comment on above: Non- GFR Calc Platelets bldOrdered By: Dr. Kincaid on 04-04-2022 Platelets (Bld) [#/Vol] 234 10*3/uL 150-450 [facility] Serum or plasma calcium chacha urement (mass/volume)Ordered By: Dr. Kincaid on 04-04-2022 Calcium [Mass/Vol] 10.0 mg/dL 8.5-10.1 [facility] Serum or plasma creatinine m easurement (mass/volume)Ordered By: Dr. Kincaid on 04-04-2022 Creatinine [Mass/Vol] 0.93 mg/dL 0.70-1.30 [facility] Comment on above: The validity of the calculated GFR & GFRAA in patients over 70 years has not been determined. Clinical correlation is essential. Serum or plasma urea nitroge n measurement (mass/volume)Ordered By: Dr. Kincaid on 04-04-2022 Urea nitrogen [Mass/Vol] 9 mg/dL 7-18 [facility] Thin prep Papanicolaou smear with manual screeningOrdered By: Dr. Kincaid on 04-04-2022 Thin prep Papanicolaou smear with manual screening 3 -15 [facility] Vital Signs Date Time Vital Sign Value Performing Clinician Faci lity 10-23-2024 17:48-0400 Body temperature 97.6 [degF] No Primary Care Physician [facility] 10-23-2024 17:48-0400 Diastolic blood pressure 112 mm[Hg] No Primary Care Physician [facility] 10-23-2024 17:48-0400 Heart rate 85 /min No Primary Care Physician [facility] 10-23-2024 17:48-0400 Respiratory rate 21 /min No Primary Care Physician [facility] 10-23-2024 17:48-0400 SaO2% (BldA) [Mass fraction] 100 % No Primary Care Physician [facility] 10-23-2024 17:48-0400 Systolic blood pressure 168 mm[Hg] No Primary Care Physician [facility] 10-23-2024 14:55-0400 Body height 185.42 cm No Primary Care Physician [facility] 10-23-2024 14:55-0400 Body mass index (BMI) [Ratio] 25.9 kg/m2 No Primary Care Physician [facility] 10-23-2024 14:55-0400 Body weight 89.35 kg No Primary Care Physician [facility] 05-24-2023 15:00-0400 Body temperature 98.1 [degF] [facility] 05-24-2023 15:00-0400 Diastolic blood pressure 70 mm[Hg] [facility] 05-24-2023 15:00-0400 Heart rate 90 /min [facility] 05-24-2023 15:00-0400 Respiratory rate 18 /min [facility] 05-24-2023 15:00-0400 SaO2% (BldA) [Mass fraction] 100 % [facility] 05-24-2023 15:00-0400 Systolic blood pressure 140 mm[Hg] [facility] 05-24-2023 13:19-0400 Body height 185.42 cm [facility] 05-24-2023 13:19-0400 Body mass index (BMI) [Ratio] 23.9 kg/m2 [facility] 05-24-2023 13:19-0400 Body weight 82.21 kg [facility] 03-29-2023 12:51-0500 Body height 185.42 cm [facility] 03-29-2023 12:51-0500 Body mass index (BMI) [Ratio] 25.8 kg/m2 [facility] 03-29-2023 12:51-0500 Body temperature 97.1 [degF] [facility] 03-29-2023 12:51-0500 Body weight 88.72 kg [facility] 03-29-2023 12:51-0500 Diastolic blood pressure 76 mm[Hg] [facility] 03-29-2023 12:51-0500 Heart rate 88 /min [facility] 03-29-2023 12:51-0500 Respiratory rate 16 /min [facility] 03-29-2023 12:51-0500 SaO2% (BldA) [Mass fraction] 98 % [facility] 03-29-2023 12:51-0500 Systolic blood pressure 134 mm[Hg] [facility] 04-04-2022 13:29-0500 Respiratory rate 16 /min [facility] 04-04-2022 11:21-0500 Body height 185.42 cm [facility] 04-04-2022 11:21-0500 Body mass index (BMI) [Ratio] 25 kg/m2 [facility] 04-04-2022 11:21-0500 Body temperature 97.8 [degF] [facility] 04-04-2022 11:21-0500 Body weight 86.18 kg [facility] 04-04-2022 11:21-0500 Diastolic blood pressure 102 mm[Hg] [facility] 04-04-2022 11:21-0500 Heart rate 75 /min [facility] 04-04-2022 11:21-0500 SaO2% (BldA) [Mass fraction] 99 % [facility] 04-04-2022 11:21-0500 Systolic blood pressure 143 mm[Hg] [facility] Encounters Encounter Date Encounter Type Care Provider Facility Start: 10-23-2024 End: 10-23-2024 Emergency department patient visit No Primary Care Physician -Emergency Department Work Phone: Start: 05-24-2023 End: 05-24-2023 Emergency department patient visit [facility] Work Phone: Start: 03-29-2023 End: 03-29-2023 Emergency department patient visit [facility] Work Phone: Start: 04-04-2022 End: 04-04-2022 Emergency department patient visit [facility] Procedures Date Procedure Procedure Detail Performing Clinician Start: 10-23-2024 Estimated creatinine clearance No Primary Care Physician Start: 10-23-2024 Computed tomography of abdomen and pelvis with intravenous contrast No Primary Care Physician Start: 04-04-2022 X-ray of cervical spine Start: 04-04-2022 Plain x-ray of hand Plan of Treatment Date Care Activity Detail Author Start: 10-23-2024 [facility] Start: 05-24-2023 [facility] Start: 03-29-2023 End: 03-29-[address] [facility] Patient Education [facility] Work Phone: Patient referral [facility] Work Phone: Payers Date Payer Category Payer Self-pay Unknown [id number] Social History Date Type Detail Facility Start: 04-04-2022 End: 05-24-2023 Tobacco smoking status MSIS Unknown if ever smoked [facility] Start: 1980 Sex Assigned At Male [facility] Start: 10-23-2024 Tobacco smoking stat us NHIS Smokes tobacco daily (finding) [facility] Mental Status Date Assessment Result Facility 04-04-2022 Cognitive function Voice/Name [facility] Work Phone: Radiology Diagnostic study note 10-23-2024 Note Date & Type Note Facility 10-23-2024 Radiology Diagnostic study note [facility] Imaging Services [address] [place] [address] Abdomen/Pelvis W IV Cont ONLY MR#: [id number] Acct: [id number] Name: RASHAD SCHULTE Rep #: [id number] : 1980 M 43 From: Tulio Hilario MD PCP: Care Physician,No Primary Status: REG ER Study:Abdomen/Pelvis W IV Cont ONLY Date of E xam: 10/23/24 Exam# [id number] Ordering Dr: Rebekah Rosario PROCEDURE: ABDOMEN/PELVIS W IV CONT ONLY 10/23/2024 REASON FOR EXAM: EPIGASTRIC PAIN TECHNIQUE: Procedure Code: [id number] Modality: CT Procedure: ABDOMEN/PELVIS W IV CONT ONLY Coronal and Sagittal reconstruction series were provided. CONTRAST: Isovue 370 VOLUME: 95 mL One or more dose reduction techniques were used (e.g., Automated exposure control, adjustment of the mA and/or kV according to patient size, use of iterative reconstruction technique. RADIATION DOSE SUMMARY: DLP: 810.78 mGycm COMPARISON: None. FINDINGS: Lung bases: Clear. Liver: Diffuse hepatic steatosis. Ill-defined small hypodense region adjacent to the falciform ligament is most likely a small area of more pronounced focal fatty infiltration. Gallbladder: Unremarkable. No biliary ductal dilatation. Spleen: Normal size and morphology. Pancreas: Mildly prominent main duct. No peripancreatic inflammation/edema. Adrenals: Unremarkable. Kidneys: Normal symmetric enhancement. Few bilateral punctate nonobstructive renal stones. No ureteral calculi or hydroureteronephrosis on either side. No perinephric edema. Bladder: Unremarkable. Reproductive Organs: Unremarkable. Bowel: Mild circumferential thickening of the lower esophagus. No disproportionate gastric wall thickening. Mild prominence of the duodenum and proximal jejunal bowel loops, findings suggestive of mild esophagitis and gastroenteritis. No bowel obstruction. Normal appendix. Submucosal fat infiltration of the distal colon may be metabolic in nature or related to chronic inflammation. Lymph nodes: No enlarged abdominopelvic lymph nodes. Vasculature: Normal caliber abdominal aorta and IVC. Mild atherosclerotic disease. Peritoneum / Retroperitoneum: No ascites or free air. Bones: Mild degenerative changes of the spine most pronounced at the lumbosacraljunction. CT/Abdomen/Pelvis W IV Cont ONLY IMPRESSION: 1. Findings of mild esophagitis and gastroenteritis. No bowel obstruction. 2. No evidence for acute cholecystitis or pancreatitis. 3. Diffuse hepatic steatosis. 4. Few bilateral punctate nonobstructive renal stones. Reading Location: [id number] CC: MARCO ANTONIO Pfeiffer; No Primary Care Physician ~ Supervisor Beam Department: Signed [facility] Discharge instructions 10-23-2024 Note Date & Type Note Facility 10-23-2024 Hospital Discharg e instructions Additional Instructions The CAT scan shows inflammation of your esophagus and stomach from your acid reflux or GERD. Take your omeprazole daily and I prescribed a medication called Carafate that you take before each meal and at bedtime. Avoid fried or spicy foods, avoid eating 2 hours before bed as this can worsen acid reflux. Follow-up with a primary care doctor. [facility] Work Phone: Discharge summary 05-24-2023 Note Date & Type Note Facility 05-24-2023 Discharge summary Note Date/Time May 24, 2023 1:59pm [facility] Medical Records Department [address] [place] [id number] Emergency Department Summary 05/24/23 MR#: [id number] Acct: [id number] Name: RASHAD SCHULTE Rep #:[id number] : 1980 42 From: Josh Marroquin MD PCP: Care Physician,No Primary Status :REG ER Location: ED HPI History of Present Illness Chief Complaint: Eye Problem Informant: patient Onset/Context/Timing Location: Right Eye (mildly on left, but FB sens and sv pain R) Onset: Days (3) Narrative Narrative: Patient has had gradual onset of discomfort in his right eye, also a little on the left but nothing compared to the right. He has foreign body sensation and tearing. When he is not having tearing/watery discharge, his vision is normal. He has reading glasses but does not use glasses otherwise and does not wear contacts. 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 [facility] Medical History no medical history no medical history Home Medications prednisone 20 mg tablet 40 mg (2 x 20 mg) PO DAILY #8 tabs 04/04/22 [Rx Last Taken Unknown] ondansetron 4 mg disintegrating tablet 4 mg PO Q8H PRN nausea and vomiting 3 days #9 tabs 09/18/22 [Rx Last Taken Unknown] Allergy/AdvReac Type Severity Reaction Status Date / Time No Known Allergies Allergy Verified 05/24/23 13:20 Social History Smoking Status: Current every day smoker tobacco type: cigarettes ROS ROS ED Constitutional Constitutional ED: Denies chills or fever(s) Eyes Eyes: Reports as per HPI and eye pain ENT ENT ED: Denies ear pain, rhinorrhea or sore throat Neurologic Neurologic: Denies headache(s), paresthesias or weakness EXAM Physical Exam Const Vital Signs: 05/24/23 13:19 Temperature 98 F Temperature Source Temporal Pulse Rate 96 Respiratory Rate 16 Blood Pressure 143/106 H Blood Pressure Mean 118 Pulse Ox 99 Oxygen Delivery Method Room Air Positive well nourished and well developed General Appearance ED: well developed and NAD HEENT atraumatic; Negative for tenderness Mouth ED: Yes oral and palatal mucosa normal and Yes lips normal Mouth: oral and palatal mucosa normal and lips normal Eyes PERRL and EOMs intact bilaterally Eyes Narrative: Left eye normal-appearing. The right eye has nasal conjunctival injection. Minimal blepharospasm/photophobia. Right eye: On slit-lamp exam, there is a punctate foreign body attached to the cornea fairly peripherally around the 3:00 area. With fluorescein staining, Frankie's negative and there were no other areas of dye uptake other than the foreign body. There is no corneal stippling. Neuro oriented x3, CN's II-XII intact bilaterally and gait normal Sensorium / Orientation: alert Skin Lesions: no lesions Rashes: no rashes MDM MDM MDM Narrative Medical decision making narrative: Patient appeared to have a foreign body on the nasal aspect of the cornea which was removed see the procedure note. No evidence of UV keratitis at this time. Patient was given erythromycin ophthalmic ointment and instructions for use and advised to follow-up with ophthalmology. Procedures Other Procedures Procedure(s): Corneal foreign body removal: After anesthetizing with tetracaine,using the eye kacey, was able to gently lift the foreign body off of the cornea. I then used a flush to gently flush the foreign body out of his eye, and saw it in the sink. Examining him afterwards, negative Frankie sign no other areas of dye uptake and no residual rust ring. Discharge Plan Triage Chief Complaint: Eye Problem ED Provider: Josh Marroquin Dx/Rx/DC Orders Clinical Impression: Foreign body in cornea, right eye, initial encounter Instructions: ED Corneal Foreign Body, Removed Prescriptions: No Action prednisone 20 mg tablet 40 mg PO DAILY Qty: 8 0RF ondansetron 4 mg tablet,disintegrating 4 mg PO Q8H PRN (Reason: nausea and vomiting) 3 Days Qty: 9 0RF Primary Care Provider: Care Physician,No Primary Referrals: Jonathan Lam MD [Med Staff - Active Staff] - 3-5 Days if not improving Activity Restrictions/Additional Instructions: Antibiotic ointment: Use thin ribbon into your lower eyelid 2-3 times per day asneeded for discomfort until eye is better. Do not try to apply directly to the eye, apply to the inside of your lower eyelid and blink in the ointment. Disposition Disposition: Home, Self Care What to do if you have Problems For any increased pain, shortness of breath, bleeding, nausea or vomiting, chestpain, or any unexpected problems, contact your Primary Care Provider. Call [facility] ([phone]) or report to the closest Emergency Room. Call 911 if necessary. 05/24/23 1522 <Electronically signed by Josh Marroquin MD> Cosigner Signature (if applicable): CC: No Primary Care Physician ~ Signed [facility] Work Phone: Hospital Discharge instructions 05-24-2023 Note Date & Type Note Facility 05-24-2023 Hospital Discharg e instructions Additional Instructions Antibiotic ointment: Use thin ribbon into your lower eyelid 2-3 times per day as needed for discomfort until eye is better. Do not try to apply directly to the eye, apply to the inside of your lower eyelid and blink in the ointment. [facility] Work Phone: Discharge summary 04-04-2022 Note Date & Type Note Facility 04-04-2022 Discharge summary Note Date/Time April 04, 2022 2:47pm [facility] Medical Records Department [address] [place] [address] Emergency Department Summary 04/04/22 MR#: [id number] Acct: [id number] Name: RASHAD SCHULTE Rep #:[id number] : 1980 41 From: Carmen Stone PCP: Care Physician,No Primary Status :DEP ER Location: ED HPI History of Present Illness Chief Complaint: Numb/Ting Informant: patient Narrative Narrative: 41-year-old male denies any significant past medical history presenting with paresthesias and weakness of his hands, right worse than left. He is right-handdominant. States he has chronic right shoulder pain that has been worsening over the past few months. He states last night he just felt like his fingers were sausages and could not move them too well. States he also has pain in his shoulder, elbow and hand separately. He does have a new job working at an [employer] where he has to hold a louis gun in his right hand. Patient states his thumb and index finger off the worst of his other fingers but all of his fingers feel numb. His mother does have a history of lupus and MS. Patienthas been told he has herniated disc in his neck before. He states he has not dropped anything but has not really tried to pick anything up. He did not take any of her symptoms prior to arrival. He does not follow with anyone for this. No other complaints at this time. Denies any injury or trauma. Patient denies any history of cancer, IV drug use or any bleeding disorders. Isnot any blood thinners. Denies any new night sweats PFSH PFSH Home Medications prednisone 20 mg tablet 40 mg PO DAILY #8 tabs 04/04/22 [Rx Last Taken Unknown] Allergy/AdvReac Type Severity Reaction Status Date / Time No Known Allergies Allergy Verified 04/04/22 11:22 Social History Smoking Status: Never smoker ROS ROS ED Constitutional Constitutional ED: Denies chills or fever(s) Eyes Eyes: Denies change in vision Cardiovascular Cardiovascular: Denies chest pain or palpitations Respiratory/Chest Respiratory/Chest: Denies cough Gastrointestinal Gastrointestinal: Denies abdominal pain or vomiting Musculoskeletal Musculoskeletal: Reports arthralgias and neck pain Integumentary Denies rash Neurologic Neurologic: Reports paresthesias; Denies headache(s) EXAM Physical Exam Const Vital Signs: 04/04/22 11:21 04/04/22 13:29 Temperature 97.8 F Temperature Source Temporal Pulse Rate 75 Respiratory Rate 18 16 Blood Pressure 143/102 H Blood Pressure Mean 115 Pulse Ox 99 Oxygen Delivery Method Room Air Positive well nourished and well developed General Appearance ED: well developed and NAD HEENT Reports moist mucous membranes Eyes PERRL Neck supple and no JVD Neck Narrative: No midline tenderness. Mild bilateral paraspinal tenderness to palpation Chest Wall inspection of chest normal Resp normal respiratory effort and clear to auscultation bilaterally Cardio regular rate, regular rhythm and no murmurs GI non-distended Extremity Extremity Narrative: Mild edema diffusely of the right hand. Patient has tenderness over the medial aspect of the right elbow with direct palpation but does not cause pain to radiate down the hand. Patient has preserved range of motion of the hand including thumbs up, crossing the fingers, AB duction, adduction and making a fist however it is slower and causes discomfort. He reports subjective paresthesias of the hand with the thumb and the index finger are worse than the other 3 fingers. Normal exam of the left hand. Pain is worsened by Sara's test. Neuro oriented x3 and CN's II-XII intact bilaterally Neuro Narrative: Subjective paresthesias of the right hand diffusely but most pronounced in the distribution of the radial nerve of the right hand Sensorium / Orientation: alert Motor Exam: strength 5/5 throughout; Negative for general weakness Psych mental status grossly normal Skin no rashes or lesions noted and no wounds MDM MDM MDM Narrative Medical decision making narrative: Patient evaluated for bilateral hand paresthesias and pain. He has what seems to be more of a peripheral nerve entrapment and possible radiculopathy. I suspect he has de Quervain's tenosynovitis given the significant pain and paresthesias with movement of the radial aspect of the hand. CBC, BMP and magnesium ordered to check his electrolytes. No significant abnormalities. X-ray of the hand does not show any acute process. X-ray of the cervical spine did show moderate degree of disc base narrowing and spondylosis of C5-C6 and C6-C7. I do not think he requires emergent MRI. He does not have any risk factors for discitis or epidural abscess/hematoma. Patient has improvement of symptoms with IV Toradol in the ER. I do not think this is a central process I do not think he requires any head imaging. Patient is given referral for Ortho for outpatient follow-up as well as a primary care doctor. Is started on a short course of prednisone. Is given a thumb spica splint. Is counseled returnprecautions. Discharged home in stable condition. States he will talk to his work about light duty or decreasing the repetitive motion that likely is worsening his hand symptoms. Lab Data Attestation: I reviewed the patient's lab results. Labs: Laboratory Results - last 24 hr 04/04/22 04/04/22 12:45 12:45 WBC 10.4 RBC 5.84 Hgb 16.4 Hct 49.7 MCV 85.1 MCH 28.1 MCHC 33.0 RDW Std Deviation 50.0 H RDW Coeff of Johnson 17.5 H Plt Count 234 MPV 12.2 H Immature Gran % (Auto) 0.300 Neut % (Auto) 66.9 Lymph % (Auto) 18.9 L [place] % (Auto) 6.1 Eos % (Auto) 6.7 H Baso % (Auto) 1.1 H Absolute Neuts (auto) 7.0 Absolute Lymphs (auto) 1.96 Nucleated RBC % 0 Sodium 139 Potassium 4.2 Chloride 110 H Carbon Dioxide 26.0 Anion Gap 3 L BUN 9 Creatinine 0.93 Estim Creat Clear Calc 115.75 Est GFR (MDRD) Af Amer 114 Est GFR (MDRD) Non-Af 94 BUN/Creatinine Ratio 9.7 L Glucose 124 H Calcium 10.0 Magnesium 2.2 Radiography Diagnostic Testing: Clinical Impression(s) from Imaging Studies Hand X-Ray 04/04/22 12:29 IMPRESSION: Normal x-ray examination of the hand. Electronically Signed: Naeem Weston MD at 13:50 EST , Cervical Spine X-Ray 04/04/22 13:30 IMPRESSION: Loss of the normal cervical lordosis. Moderate degree of disc space narrowing and spondylosis at the C5-C6 and C6-C7 levels. Electronically Signed: Naeem Weston MD at 13:51 EST , Discharge Plan Triage Chief Complaint: Numb/Ting ED Provider: Carmen Kincaid Dx/Rx/DC Orders Clinical Impression: Arm paresthesia, right, Paresthesias in left hand, Paresthesias in right hand, De Quervain's tenosynovitis, right Instructions: De Quervain Tenosynovitis, ED Neuropathy, Peripheral, ED Paraesthesias Prescriptions: New prednisone 20 mg tablet 40 mg PO DAILY Qty: 8 0RF Primary Care Provider: Care Physician,No Primary Referrals: Callum Garza MD [Med Staff - Printing Mechanist] - As soon as possible Jackson Gooden DO [Med Staff - Active Staff] - As soon as possible Care Physician,No Primary [Primary Care Provider] - Activity Restrictions/Additional Instructions: Alternate ibuprofen and Tylenol. Wear the splint especially while at work. Follow-up with orthopedics as well as primary care. You been given a referral for both. Disposition Disposition: Home, Self Care Discharge Date/Time: 04/04/22 14:56 What to do if you have Problems For any increased pain, shortness of breath, bleeding, nausea or vomiting, chestpain, or any unexpected problems, contact your Primary Care Provider. Call [id number] ([phone]) or report to the closest Emergency Room. Call 911 if necessary. 04/04/22 1826 <Electronically signed by Carmen Kincaid DO> Cosigner Signature (if applicable): CC: No Primary Care Physician ~ Signed [facility] Work Phone: Evaluation note Note Date & Type Note Facility Evaluation note No assessment information availa ble [facility] Work Phone: Hospital Discharge instructions Note Date & Type Note Facility Hospital Discharge instructions Additional Instructions Alternate ibuprofen and Tylenol. Wear the splint especially while at work. Follow-up with orthopedics as well as primary care. You been given a referral for both. [facility] Work Phone: Hospital Discharge instructions Note Date & Type Note Facility Hospital Discharge instructions Additional Instructions Please have the sutures removed in 10 days. Keep the area clean and dry. Remember the next couple days to try to decrease any movement. [facility] Work Phone: Reason for referral (narrative) Note Date & Type Note Facility Reason for referral (narrative) No reason for referral information available [facility] Work Phone: Chief Complaint and Reason for Visit Chief Complaint N/T Chief Complaint LACERATION Chief Complaint LACERATION EYE PROBLEM Chief Complaint Admit Date abd pain October 23, 2024 2: 54pm Advance Directives No Advanced Directives Records Found Advance Directive Response Recorded Date/ Time Living Will No April 04 11:27am Power of Building Superintendent No April 04, 2022 11:27am Advance Directive Response Recorded Date/ Time Living Will No March 29 2:10pm Power of Building Superintendent No March 29, 2023 2:10pm Advance Directive Response Recorded Date/ Time Living Will No May 24, 2023 2:20pm Power of Building Superintendent No May 23 2:20pm Advance Directive Response Recorded Date/ Time Do you have a Healthcare Power of Building Superintendent? No October 23, 2024 4:05pm Summary Purpose Family History No Family History Records Found Additional Source Comments Care Teams (unrecognized sec tion and content) Team Status: Active Member Role Status Dates No Primary Care Physician Primary Care Provider Active Team Status: Inactive Member Role Status Dates No Primary Care Physician Primary Care Provider Active Dr. Carmen Kincaid DO Emergency Provider Active Team Status: Inactive Member Role Status Dates No Primary Care Physician Primary Care Provider Active Dr. Shayne Fuentes MD Emergency Provider Active Team Status: Inactive Member Role Status Dates No Primary Care Physician Primary Care Provider Active Dr. Shayne Fuentes MD Attending Provider, Emergency Pro vider Active Team Status: Inactive Member Role Status Dates No Primary Care Physician Primary Care Provider Active Dr. Josh Marroquin MD Emergency Provider Active Team Status: Active Member Role/Relationship Status Dates No Primary Care Physician Primary Care Provider Active Team Status: Inactive Member Role/Relationship Status Dates No Primary Care Physician Primary Care Provider Active Start: October 23, 2024 End: October 23, 2024 Dr. Shayne Fuentes MD Emergency Provider Active S tart: October 23, 2024 End: October 23, 2024 Goals (unrecognized section and content) Goals may be documented in a n alternate sectionGoals may be documented in an alternate sectionGoals may be documented in an alternate sectionGoals may be documented in an alternate section (unrecognized sect ion and content) No Status Records Found INFORMATION SOURCE (unrecogn ized section and content) DATE CREATED AUTHOR 10/31/2024 [facility] FOR RECORDS PERTAINING TO PATIENTS WHO ARE OR HAVE BEEN ENROLLED IN A CHEMICAL DEPENDENCY/SUBSTANCEABUSE PROGRAM, SOME INFORMATION MAY BE OMITTED. This clinical summary was aggregated from multiple sources. Caution should be exercised in using it in the provision of clinical care. This summary normalizes information from multiple sources, and as a consequence, information in this document may materially change the coding, format and clinical context of patient data. In addition, data may be omitted in some cases. CLINICAL DECISIONS SHOULD BE BASED ON THE PRIMARY CLINICAL RECORDS. [employer] provides no warranty or guarantee of the accuracy or completeness of information in this document.
== END 2024-12-18 09:16 | disposition home or self-care (01) ==
LOC: ED 09:15
PROVIDERS: Emergency Provider Emergency Medicine; Visit Provider Emergency Medicine
DX: G56.21 Lesion of ulnar nerve, right upper limb (principal); R20.2 Paresthesia of skin; I10 Essential (primary) hypertension; F17.210 Nicotine dependence, cigarettes, uncomplicated
CPT/HCPCS: 99282

== ENCOUNTER 2025-01-04 09:57 | Emergency (ER) | payer SELFPAY ==
[2025-01-04 09:58] VITALS: BP 158/113; PULSE 87; RESP 22; TEMP 36.6; O2SAT 100; BMI 28.0
--- NOTE | 2025-01-04 10:10 | ED.VIS.BACK ---
HPI History of Present Illness Chief Complaint: Back Detail of Chief Complaint: Back pain Informant: patient Narrative Narrative: Patient presents with back pain that started yesterday. Patient states that he helped a friend move 2 days ago but felt fine after helping his friend. Yesterday he bent over to pick remover an empty box and developed sudden onset of pain in his low back and radiating towards his left hip. Patient denies weakness in extremities. He denies change in bowel or bladder function. He denies urinary symptoms. Patient does have history of sciatica [facility] Medical History HTN (hypertension) Home Medications Medication Instructions Recorded Last Taken Type famotidine 20 mg tablet 20 mg PO PRN 09/24/23 09/23/23 History (Zantac-360 (famotidine)) ibuprofen 600 mg tablet 600 mg PO Q8H PRN PRN pain #20 09/24/23 Unknown Rx TABLETS prednisone 20 mg tablet See Rx Instructions .Route 12/18/24 Unknown Rx .COMPLEX #24 tabs cyclobenzaprine 10 mg tablet 10 mg PO TID PRN Muscle Spasm #20 01/04/25 Unknown Rx TABLETS hydrocodone-acetaminophen 5-325mg 1 tab PO Q4H PRN PRN Pain 2 days 01/04/25 Unknown Rx 5mg-325mg #14 TABLETS naproxen 500 mg tablet (Naprosyn) 500 mg PO BID PRN pain #20 tabs 01/04/25 Unknown Rx Allergy/AdvReac Type Severity Reaction Status Date / Time No Known Allergies Allergy Verified 12/18/24 08:37 Social History Smoking Status: Current every day smoker tobacco type: cigarettes ROS ROS ED Review of Systems ROS Unobtainable: other Constitutional Constitutional ED: Reports lethargy; Denies chills, fever(s), sweats or weight loss Eyes Eyes: Denies blurry vision, change in vision or diplopia ENT ENT ED: Denies rhinorrhea or sore throat Cardiovascular Cardiovascular: Denies chest pain, orthopnea or racing heartbeat Respiratory/Chest Respiratory/Chest: Denies cough, dyspnea, dyspnea on exertion, orthopnea or sputum Gastrointestinal Gastrointestinal: Denies abdominal pain, diarrhea, nausea or vomiting Genitourinary Genitourinary ED: Denies dysuria, hematuria or urinary frequency Musculoskeletal Musculoskeletal: Reports back pain; Denies arthralgias, myalgias or neck pain Integumentary Denies abscess, Abrasions or rash Neurologic Neurologic: Denies headache(s) or weakness Psychiatric Psychiatric: Denies anxiety, depression or suicidal thoughts Endocrine Endocrinology: Denies polydipsia, polyphagia or polyuria Hematologic/Lymphatic Hematologic/Lymphatic: Denies easy bleeding, easy bruising or lymphadenopathy Allergic/Immunologic Allergic/Immunologic ED: Denies mouth swelling, tongue swelling or urticaria EXAM Physical Exam Const Vital Signs: 01/04/25 09:58 Temperature 97.8 F Temperature Source Temporal Pulse Rate 87 Respiratory Rate 22 H Blood Pressure 158/113 H Blood Pressure Mean 128 Pulse Ox 100 Oxygen Delivery Method Room Air Positive well nourished and well developed General Appearance ED: well developed and NAD HEENT Reports TM's clear and moist mucous membranes normocephalic and atraumatic; Negative for trauma or tenderness Tympanic Membrane ED: Yes TM's clear Eyes PERRL and EOMs intact bilaterally General Eye ED: Negative for pale conjunctiva or scleral icterus Neck no lymphadenopathy, supple and no JVD General: Negative for tenderness Chest Wall inspection of chest normal and palpation of chest normal Chest: Negative for tenderness Resp normal respiratory effort and clear to auscultation bilaterally Effort and Inspection: Negative for respiratory distress or pain with movement Auscultation: Negative for rhonchi, wheezes or diminished lung sounds Cardio regular rate, regular rhythm, S1 normal heart sound, S2 normal heart sound and no murmurs Peripheral Pulses: pulses 2+ throughout GI normal to inspection, nondistended, normoactive bowel sounds, soft to palpation, non-tender, non-distended and no masses Back/Spine no CVA tenderness; Negative for no thoracic nor lumbar tenderness Back/Spine Narrative: Diffuse tenderness over the left lumbar paraspinal musculature. No significant tenderness over the thoracic or lumbar spine. He has positive straight leg raise on the left with pain at about 30 degrees while seated. Deep tendon reflexes plus 2 out of 4 bilaterally at the patella and Achilles. He has normal L5 extension bilaterally. He has normal sensation to light touch. Extremity normal to inspection General Extremety ED: Negative for edema General Extremity: Negative for edema Neuro oriented x3, CN's II-XII intact bilaterally, no sensory deficits noted and gait normal Sensorium / Orientation: awake, alert, oriented to person, oriented to place and oriented to time Motor Exam: strength 5/5 throughout and strength abnormal Psych mental status grossly normal Skin no rashes or lesions noted and no wounds MDM MDM MDM Narrative Medical decision making narrative: Patient presents with back pain from lifting yesterday. No trauma. History of sciatica. Clinically looks well. No red flag symptoms of cauda equina. I do not feel any imaging is indicated. Patient will be treated with Dilaudid as well as Norflex and Toradol initially. Will send him home with a prescription for Naprosyn and Flexeril as well as a few Monette for pain. Will refer to primary care for follow-up. Advised to return if worsening pain, weakness in the extremities, change in bowel or bladder function, or condition worsen anyway Discharge Plan Triage Chief Complaint: Back ED Provider: Mikki Marti Dx/Rx/DC Orders Clinical Impression: Back pain Instructions: ED Back Spasm, No Trauma, ED Back and Neck Pain, General Prescriptions: New cyclobenzaprine 10 mg tablet 10 mg PO TID PRN (Reason: Muscle Spasm) Qty: 20 0RF hydrocodone-acetaminophen 5-325 mg tablet 1 tab PO Q4H PRN PRN (Reason: Pain) 2 Days Qty: 14 0RF naproxen [Naprosyn] 500 mg tablet 500 mg PO BID PRN (Reason: pain) Qty: 20 0RF No Action prednisone 20 mg tablet See Rx Instructions .ROUTE .COMPLEX Qty: 24 0RF Rx Instructions: 3 tabs p.o. daily x 4 days then 2 tabs p.o. daily x 4 days then 1 tab p.o. daily x 4 days famotidine [Zantac-360 (famotidine)] 20 mg tablet 20 mg PO PRN ibuprofen 600 mg tablet 600 mg PO Q8H PRN PRN (Reason: pain) Qty: 20 0RF Primary Care Provider: Care Physician,No Primary Referrals: Care Physician,No Primary [Primary Care Provider, Medical] Print Language: Fijian Disposition Disposition: Home, Self Care
[2025-01-04] MEDS: Orphenadrine 60 MG/2 ML Ampul IM (10:27)
[2025-01-04 10:52] VITALS: BP 149/99; PULSE 84; RESP 20; TEMP 36.6; O2SAT 100
== END 2025-01-04 10:53 | disposition home or self-care (01) ==
LOC: ED 10:23
PROVIDERS: Emergency Provider Emergency Medicine; Visit Provider Emergency Medicine
DX: M54.42 Lumbago with sciatica, left side (principal); I10 Essential (primary) hypertension; Z79.899 Other long term (current) drug therapy; F17.210 Nicotine dependence, cigarettes, uncomplicated
CPT/HCPCS: 96372; 99282